=== PATIENT | female | born 1930 | race Caucasian/White ===

== ENCOUNTER 2016-05-12 07:42 | Observation (INO) | payer MEDICARE, OTHER ==
--- NOTE | 2016-05-12 08:42 | RAD ---
HISTORY: Chest pain, pneumonia COMPARISONS: None VIEWS: 2: Frontal dual-energy and lateral views of the chest. FINDINGS: CARDIOMEDIASTINAL SILHOUETTE: The aorta is tortuous. The cardiomediastinal silhouette is otherwise unremarkable. KANDACE: The kandace are normal. PLEURA: The costophrenic angles are sharp. No pleural abnormalities are noted. LUNG PARENCHYMA: The lungs are clear. ABDOMEN: The upper abdomen is clear. There is no subphrenic gas. BONES AND SOFT TISSUES: Degenerative changes are noted along the spine. OTHER: None. IMPRESSION: HYPERINFLATION, CONSISTENT WITH COPD. NO ACTIVE CARDIOPULMONARY DISEASE.
[2016-05-12 09:07] LABS: Hematocrit 35 % (35-47); Hemoglobin 11.7 g/dl (12.0-16.0); Mean Corpuscular HGB Conc 34 g/dl (31-36); Mean Corpuscular Hemoglobin 32 pg (27-31); Mean Corpuscular Volume 95 fL (80-97); Mean Platelet Volume 8 um3 (7.4-10.4); Red Blood Count 3.69 10^6/ul (4.0-5.4); Red Cell Distribution Width 13 % (10.5-15); White Blood Count 10.3 10^3/ul (3.5-10.8)
[2016-05-12 09:23] LABS: Albumin 3.1 g/dL (3.2-5.2); BUN/Creatinine Ratio 29.7 (8-20); Calcium 8.7 mg/dL (8.6-10.3); EGFR African American 95.3 (>60); EGFR Non-African American 74.1 (>60); Potassium 3.9 mmol/L (3.5-5.0); Total Bilirubin 0.4 mg/dL (0.2-1.0); Total Protein 6.1 g/dL (6.4-8.9)
[2016-05-12 09:24] LABS: Troponin I 0.01 ng/mL (<0.04)
[2016-05-12] MEDS ORDERED: Ondansetron INJ* 2 MG/ML VIAL IV PRN (09:43)
[2016-05-12] MEDS ORDERED: Morphine INJ* 2 MG/ML 1 ML CARPUJECT IV PRN (09:43)
[2016-05-12] MEDS ORDERED: Acetaminophen TAB* 325 MG PO PRN (09:43)
--- NOTE | 2016-05-12 10:31 | ED ---
Howie Carter Adam, scribed for Christian Jauregui MD on 05/12/16 at 0824 . HPI Chest Pain - HPI Summary HPI Summary: Patient is a 86 y/o female who presents to [facility] with chest pain since 0700 this morning (possibly yesterday). She describes the pain as pressure or congestion in her epigastric. She reports mild dyspnea and mild SOB. Pain does not radiate and she denies diaphoresis, rhinorrhea, chills, fever, diarrhea, or cough. She also denies any pain or edema in her lower extremities or any pain in her abd. She confirms chest pain while ambulating. Pt did receive her flu shot this year. 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 SHx: She is a former smoker (stopped smoking approximately 8 years ago) and lives in an assisted living center ([facility]). PMHx: She denies HTN, HLD, DM, COPD, Asthma, or CAD. FHx: Father had CAD at an unspecified age. - History of Current Complaint Chief Complaint: EDChestWallPain Time Seen by Provider: 05/12/16 07:56 Hx Obtained From: Patient Onset/Duration: Started Minutes Ago - Approximately 1 hour., Still Present Timing: Constant, Lasting Minutes Initial Severity: Moderate Current Severity: Moderate Chest Pain Radiates: No Character: Pressure/Squeezing Aggravating Factor(s): Movement - Ambulating Alleviating Factor(s): Nothing Associated Signs and Symptoms: Negative: Fever, Chills, Diaphoresis, Cough, Abdominal Pain - Allergy/Home Medications Allergies/Adverse Reactions: Allergies Allergy/AdvReac Type Severity Reaction Status Date / Time No Known Allergies Allergy Verified 03/04/16 15:58 PMH/Surg Hx/FS Hx/Imm Hx Endocrine/Hematology History: Denies: Hx Diabetes, Hx Thyroid Disease Cardiovascular History: Denies: Hx Congestive Heart Failure, Hx Hypertension Respiratory History: Denies: Hx Asthma, Hx Chronic Obstructive Pulmonary Disease (COPD) GI History: Denies: Hx Ulcer History: Denies: Hx Dialysis, Hx Renal Disease Sensory History: Reports: Hx Contacts or Glasses - GLASSES, Hx Glaucoma - BILATERAL Denies: Hx Hearing Aid Opthamlomology History: Reports: Hx Contacts or Glasses - GLASSES, Hx Glaucoma - BILATERAL Neurological History: Reports: Hx Dementia, Other Neuro Impairments/Disorders - VERTIGO BEING TREATED BY DR. 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 BILATERAL CATERACT EXTRACTION WITH IOL IMPLANT, [facility]. APPENDECTOMY A CHILD Hx Anesthesia Reactions: No Infectious Disease History: Reports: History Other Infectious Disease - MEASLES Denies: Hx Clostridium Difficile, Hx Hepatitis, Hx Human Immunodeficiency Virus (HIV), Hx of Known/Suspected MRSA, Hx Shingles, Hx Tuberculosis, Hx Known/ Suspected VRE, Hx Known/Suspected VRSA - Family History Known Family History: Positive: Cardiac Disease - Father at an unspecified age. 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 Length of Time of Smoking/Using Tobacco: 50 YEARS Have You Smoked in the Last Year: No Review of Systems Negative: Fever, Chills, Skin Diaphoresis Negative: Nasal Discharge Positive: Chest Pain Positive: Shortness Of Breath. Negative: Cough Negative: Abdominal Pain, Diarrhea Positive: Other - Intermittent but constant pain in right hip. . Negative: Edema All Other Systems Reviewed And Are Negative: Yes Physical Exam - Summary Physical Exam Summary: The patient is well-nourished in some discomfort. The skin is warm and dry and skin color reflects adequate perfusion. HEENT: The head is normocephalic and atraumatic. The pupils are equal and reactive. The conjunctivae are clear and without drainage. Mouth reveals moist mucous membranes and the throat is without erythema and exudate. The external ears are intact. The ear canals are patent and without drainage. The tympanic membranes are intact. Neck is supple with full range of motion and non-tender. There are no carotid bruits. There is no neck vein distension. Respiratory: Some reproducible chest tenderness. Lungs are clear to auscultation and breath sounds are symmetrical and equal. Cardiovascular: Heart is regular rate and rhythm. There is no murmur or rub auscultated. There is no peripheral edema and pulses are symmetrical and equal. Abdomen: The abdomen is soft and non-tender. There are normal bowel sounds heard in all four quadrants and there is no organomegaly palpated. Musculoskeletal: Extremities are non-tender with full range of motion. Capillary refill less than 2 seconds. There is no peripheral edema or calf tenderness elicited. Neurological: Patient is alert and oriented to person, place and time. The patient has symmetrical motor strength in all four extremities. Cranial nerves are grossly intact. Psychiatric: The patient has an appropriate affect and does not exhibit any anxiety or depression. Triage Information Reviewed: Yes Vital Signs On Initial Exam: Initial Vitals BP 118/66 05/12/16 07:54 Vital Signs Reviewed: Yes Diagnostics - Vital Signs Vital Signs Temp Pulse Resp BP Pulse Ox 05/12/16 09:00 70 19 95 05/12/16 08:02 98.5 F 74 16 113/58 96 05/12/16 08:00 72 20 113/58 96 05/12/16 07:55 74 95 05/12/16 07:54 118/66 - Laboratory Lab Results: Lab Results 05/12/16 05/12/16 05/12/16 Range/Units 08:55 08:55 08:55 WBC 10.3 (3.5-10.8) 10^3/ul RBC 3.69 L (4.0-5.4) 10^6/ul Hgb 11.7 L (12.0-16.0) g/dl Hct 35 (35-47) % MCV 95 (80-97) fL MCH 32 H (27-31) pg MCHC 34 (31-36) g/dl RDW 13 (10.5-15) % Plt Count 254 (150-450) 10^3/ul MPV 8 (7.4-10.4) um3 Neut % (Auto) 73.9 (38-83) % Lymph % (Auto) 16.3 L (25-47) % [place] % (Auto) 6.5 (1-9) % Eos % (Auto) 2.3 (0-6) % Baso % (Auto) 1.0 (0-2) % Absolute Neuts (auto) 7.6 (1.5-7.7) 10^3/ul Absolute Lymphs (auto) 1.7 (1.0-4.8) 10^3/ul Absolute Monos (auto) 0.7 (0-0.8) 10^3/ul Absolute Eos (auto) 0.2 (0-0.6) 10^3/ul Absolute Basos (auto) 0.1 (0-0.2) 10^3/ul Absolute Nucleated RBC 0 10^3/ul Nucleated RBC % 0 Sodium 136 (133-145) mmol/L Potassium 3.9 (3.5-5.0) mmol/L Chloride 106 (101-111) mmol/L Carbon Dioxide 24 (22-32) mmol/L Anion Gap 6 (2-11) mmol/L BUN 22 (6-24) mg/dL Creatinine 0.74 (0.51-0.95) mg/dL Est GFR ( Amer) 95.3 (>60) Est GFR (Non-Af Amer) 74.1 (>60) BUN/Creatinine Ratio 29.7 H (8-20) Glucose 104 H (70-100) mg/dL Lactic Acid 1.3 (0.5-2.0) mmol/L Calcium 8.7 (8.6-10.3) mg/dL Total Bilirubin 0.40 (0.2-1.0) mg/dL AST 13 (13-39) U/L ALT 9 (7-52) U/L Alkaline Phosphatase 58 (34-104) U/L Troponin I 0.01 (<0.04) ng/mL B-Natriuretic Peptide ( - 100) pg/mL Total Protein 6.1 L (6.4-8.9) g/dL Albumin 3.1 L (3.2-5.2) g/dL Globulin 3.0 (2-4) g/dL Albumin/Globulin Ratio 1.0 (1-3) 05/12/16 Range/Units 08:55 WBC (3.5-10.8) 10^3/ul RBC (4.0-5.4) 10^6/ul Hgb (12.0-16.0) g/dl Hct (35-47) % MCV (80-97) fL MCH (27-31) pg MCHC (31-36) g/dl RDW (10.5-15) % Plt Count (150-450) 10^3/ul MPV (7.4-10.4) um3 Neut % (Auto) (38-83) % Lymph % (Auto) (25-47) % [place] % (Auto) (1-9) % Eos % (Auto) (0-6) % Baso % (Auto) (0-2) % Absolute Neuts (auto) (1.5-7.7) 10^3/ul Absolute Lymphs (auto) (1.0-4.8) 10^3/ul Absolute Monos (auto) (0-0.8) 10^3/ul Absolute Eos (auto) (0-0.6) 10^3/ul Absolute Basos (auto) (0-0.2) 10^3/ul Absolute Nucleated RBC 10^3/ul Nucleated RBC % Sodium (133-145) mmol/L Potassium (3.5-5.0) mmol/L Chloride (101-111) mmol/L Carbon Dioxide (22-32) mmol/L Anion Gap (2-11) mmol/L BUN (6-24) mg/dL Creatinine (0.51-0.95) mg/dL Est GFR ( Amer) (>60) Est GFR (Non-Af Amer) (>60) BUN/Creatinine Ratio (8-20) Glucose (70-100) mg/dL Lactic Acid (0.5-2.0) mmol/L Calcium (8.6-10.3) mg/dL Total Bilirubin (0.2-1.0) mg/dL AST (13-39) U/L ALT (7-52) U/L Alkaline Phosphatase (34-104) U/L Troponin I (<0.04) ng/mL B-Natriuretic Peptide 18 ( - 100) pg/mL Total Protein (6.4-8.9) g/dL Albumin (3.2-5.2) g/dL Globulin (2-4) g/dL Albumin/Globulin Ratio (1-3) Result Diagrams: 05/12/16 08:55 05/12/16 08:55 Lab Statement: Any lab studies that have been ordered have been reviewed, and results considered in the medical decision making process. - Radiology CHEST Radiology Interpretation Completed By: Radiologist - IMPRESSION: HYPERINFLATION , CONSISTENT WITH COPD. NO ACTIVE CARDIOPULMONARY DISEASE. - EKG 0800 Cardiac Rate: NL - 67 BPM EKG Rhythm: Sinus Rhythm ST Segment: Normal EKG Interpretation: No STEMI, Poor R Wave Progression EKG Comparison: No Significant Change - From prior - Additional Comments Diagnostic Additional Comments: Troponin = 0.01 Chest Pain Course/Dx - Chest Pain Differential Diagnosis/HQI/PQRI: Acute NE, ACS, Angina, CHF, Chest Wall, GI Disease, Lower Respiratory Infection - Diagnoses Provider Diagnoses: Chest pain - Provider Notifications Discussed Care Of Patient With: Dr. Thompson (Hospitalist). Pt will be admitted and serial troponin(s) willl be obtained. Discharge - Discharge Plan Condition: Stable Disposition: ADMITTED TO [facility] The documentation as recorded by the Howie ramos Adam accurately reflects the service I personally performed and the decisions made by , Christian Jauregui MD.
[2016-05-12 16:11] VITALS: BP 122/64
[2016-05-12] MEDS ORDERED: Meclizine TAB* 12.5 MG PO PRN (17:19)
[2016-05-12] MEDS ORDERED: Polyethylene Glycol 3350* 17 GM PACKET PO PRN ×2 (17:19)
[2016-05-12] MEDS ORDERED: Fluticasone NASAL SPRAY 50MCG* 16 gm SPRAY BTL BOTH NARES PRN (17:19)
--- NOTE | 2016-05-12 20:12 | PN ---
Hospitalist Progress Note . HOSPITALIST DISCHARGE NOTE: See dc instructions and summary by me. Patient stable for dc dc instructions reviewed with the patient at the bedside. DC patient home today.
[2016-05-12] MEDS ORDERED: Sertraline* 100 MG TAB PO SCH (21:00)
[2016-05-12] MEDS ORDERED: Latanoprost 0.005%* 2.5 ml BTL BOTH EYES SCH (21:00)
[2016-05-12] MEDS ORDERED: Psyllium PAK PO SCH (21:00)
[2016-05-12] MEDS ORDERED: QUEtiapine TAB* 25 MG PO SCH (21:00)
--- NOTE | 2016-05-12 21:24 | HP ---
OBSERVATION HISTORY AND PHYSICAL AND DISCHARGE SUMMARY: DATE OF ADMISSION: 05/12/16 DATE OF DISCHARGE: 05/12/16 CHIEF COMPLAINT: Chest pain. HISTORY OF PRESENT ILLNESS: Ms. Tinajero is a pleasant, but [id number] demented 86-year-old female who came to the emergency room with chest pain since early in the morning. She was very vague about the symptomatology and stated that the pressure might have been present since the day before admission. The patient described the discomfort as a "congestion" in her epigastrium. There was mild shortness of breath and mild dyspnea. The patient did not radiate and there was no accompanying symptoms such as fever, cough, diaphoresis and so on. There was no pain or edema in her lower extremities. There was mild chest discomfort while ambulating. The patient did receive a flu shot. Her flu test in the emergency room was negative. She is a former smoker, but has not smoked in decades. She received aspirin prior to arrival from EMS. The patient was evaluated in the emergency room because of the nature of her chest pain and the inability to ensure this was not secondary to angina, she was referred for observation services with the Hospitalists. The patient was placed under telemetry monitoring and serial troponins were ordered. PAST MEDICAL HISTORY: 1. Multiple skin cancers. 2. Dementia. 3. Vertigo. 4. Glaucoma. 5. Depression. OUTPATIENT MEDICATIONS: 1. Donepezil 10 mg by mouth daily. 2. Travoprost 0.004% drops one drop both eyes at bedtime. 3. Sertraline 100 mg by mouth twice daily. 4. Meclizine/Antivert 12.5 mg orally 3 times daily as needed. 5. Dorzolamide/timolol eye drops one drop both eyes daily. 6. Vitamin E 400 units by mouth daily. 7. Seroquel 25 mg by mouth twice daily. 8. Mometasone 1 spray both nares every day as needed. 9. Cholecalciferol 50,000 units by mouth monthly. 10. Loratadine 1 tab by mouth daily. 11. Polyethylene glycol 17 g orally daily as needed. 12. Metamucil 3.4 g orally twice daily. ALLERGIES: No known drug allergies. FAMILY HISTORY: Reviewed, but noncontributory based on the current situation. SOCIAL HISTORY: The patient is a resident at [facility]. Nonsmoker, nondrinker. She is accompanied by her niece, who is her surrogate decision maker, Otilia Garrett. Her power of corporate attorney is Tobi Jarvis and she has a signed DNR by Dr. Holt ([facility]). REVIEW OF SYSTEMS: Negative except for the pertinent positives mentioned above in the HPI. This was done for 14 systems. PHYSICAL EXAMINATION GENERAL APPEARANCE: The patient is a well-nourished, well-presented woman, in no distress. VITAL SIGNS: On admission, temperature 98 degrees Fahrenheit, blood pressure 130/84, respirations 20, oxygen saturation 98% room air. HEENT: Oropharynx is clear. Mucous membranes are moist. No posterior pharyngeal erythema or exudate. NECK: Supple. No elevated JVD. No carotid bruits. LUNGS: Clear to auscultation anteriorly and posteriorly distant sounds, but clear. HEART: Regular rate and rhythm. No murmurs appreciated. ABDOMEN: Soft and nontender. EXTREMITIES: Without clubbing, cyanosis, or edema. SKIN: Warm and dry. NEUROLOGIC: She is A and O x3. ADMISSION DATA: White blood cell count 10.3, hemoglobin 11.7, platelets 254. Blood chemistries are generally normal and slightly elevated BUN to creatinine ratio at 29.7 with a BUN to creatinine of 22 and 0.74 respectively. Her LFTs are within normal limits. Her troponin is 0.01. BNP 18. Total protein was 6.1 and albumin 3.1 - both slightly decreased. The patient's EKG does not show acute ischemia and her chest x-ray did not show any focal infiltrate. The patient is on telemetry with no evidence of arrhythmia. IMPRESSION: Ms. Tinajero is an 86-year-old female who presents with chest pain that is unclear in its nature as recently as 7 o'clock this morning. She was referred for observation services and cycled cardiac enzymes. The patient is a poor historian and so her risk cannot be fully assessed by history. PLAN BY MEDICAL PROBLEM: 1. Cycle cardiac enzymes over the next 6 to 8 hours. Continue telemetry during this time and re-evaluate symptoms while on our observation unit. 2. Continue all outpatient medications and therapies. 3. Re-evaluate this afternoon. HOSPITAL COURSE AND DISCHARGE SUMMARY: Ms. Tinajero was placed on observation as above. She experienced no further chest pain or discomfort. She was given a cardiac diet and she tolerated this well. The patient had 3 separate troponin levels, which were negative. Her telemetry was analyzed by me and showed no evidence of arrhythmia. Her vital signs were within the normal limits. The patient's daughter did come to the hospital and they were satisfied for discharge back to [facility] at this time. The discharge medication regimen is unchanged from the admission regimen above. PRINCIPAL DISCHARGE DIAGNOSIS: Chest pain of unclear etiology, shw was ruled out for myocardial infarction. Followup instructions are to see Dr. Blair next week and this discharge summary will be copied to her as an alert that she was in the hospital. TIME SPENT: Total time taken to admit, monitor and then discharge Ms. Tinajero in total was 75 minutes with greater than half that time spent at the bedside and explaining the hospital data and hospital course to the patient and her daughter at discharge. [id number]/[id number] #: [id number] MTDD
[2016-05-13] MEDS ORDERED: Vitamin E CAP* 400 UNIT PO SCH (09:00)
== END 2016-05-12 18:05 | disposition home or self-care (01) ==
LOC: ED 07:42 → MEDTELE 09:43
PROVIDERS: ADMIT Internal Medicine; ATTEND Internal Medicine
DX: R07.9 Chest pain, unspecified (principal); F03.90 Unspecified dementia, unspecified severity, without behavioral disturbance, psychotic disturbance, mood disturbance, and anxiety; R42 Dizziness and giddiness; F32.9 Major depressive disorder, single episode, unspecified; Z87.891 Personal history of nicotine dependence
CPT/HCPCS: 36415; 71020; 80053; 83605; 83880; 84484; 85025; 87641; 93005; 96374; 99284; A9270-GY; G0378

== ENCOUNTER 2016-07-20 13:21 | Emergency (ER) | payer MEDICARE, OTHER ==
[2016-07-20 13:33] VITALS: BP 138/66
[2016-07-20] MEDS ORDERED: Acetaminophen TAB* 325 MG PO ONE (14:15)
--- NOTE | 2016-07-20 14:15 | ED ---
Head Injury - HPI Summary HPI Summary: 86 y/o female while walking the grounds at [employer] fell on ? stick, denies lightheadedness, syncope, states was mechanical fall. Patient denies LOC, however unwitnessed. Walked by herself back to home, was taken to ED. Currently states minimal pain over areas of cuts, denies LARA, no other body complaints. NO h/O falling per patient. integrated pest management technician not with patient, report from [facility] states fell on carpet, hit head on coffee table, witnessed. - History Of Current Complaint Chief Complaint: EDFacialInjury Stated Complaint: FALL / FACIAL LAC Time Seen by Provider: 07/20/16 13:53 Hx Obtained From: Patient Pain Intensity: 4 - Allergies/Home Medications Allergies/Adverse Reactions: Allergies Allergy/AdvReac Type Severity Reaction Status Date / Time No Known Allergies Allergy Verified 07/20/16 13:34 PMH/Surg Hx/FS Hx/Imm Hx Previously Healthy: No - dementia Endocrine/Hematology History: Denies: Hx Diabetes, Hx Thyroid Disease Cardiovascular History: Denies: Hx Congestive Heart Failure, Hx Hypertension Respiratory History: Denies: Hx Asthma, Hx Chronic Obstructive Pulmonary Disease (COPD) GI History: Denies: Hx Ulcer History: Denies: Hx Dialysis, Hx Renal Disease Sensory History: Reports: Hx Contacts or Glasses - GLASSES, Hx Glaucoma - BILATERAL Denies: Hx Hearing Aid Opthamlomology History: Reports: Hx Contacts or Glasses - GLASSES, Hx Glaucoma - BILATERAL Neurological History: Reports: Hx Dementia, Other Neuro Impairments/Disorders - VERTIGO BEING TREATED BY DR. 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 BILATERAL CATERACT EXTRACTION WITH IOL IMPLANT, [facility]. APPENDECTOMY A CHILD Hx Anesthesia Reactions: No Infectious Disease History: No Infectious Disease History: Reports: History Other Infectious Disease - MEASLES Denies: Hx Clostridium Difficile, Hx Hepatitis, Hx Human Immunodeficiency Virus (HIV), Hx of Known/Suspected MRSA, Hx Shingles, Hx Tuberculosis, Hx Known/ Suspected VRE, Hx Known/Suspected VRSA, Traveled Outside the [place] in Last 30 Days - Family History Known Family History: Positive: Cardiac Disease - Father at an unspecified age. 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 Hx Substance Use: No Substance Use Type: Reports: None Hx Tobacco Use: Yes Smoking Status (MU): Former Smoker Length of Time of Smoking/Using Tobacco: 50 YEARS Have You Smoked in the Last Year: No Review of Systems Constitutional: Negative Eyes: Negative ENT: Negative Respiratory: Negative Gastrointestinal: Negative Genitourinary: Negative Musculoskeletal: Negative Positive: Bruising Positive: Headache Psychological: Normal All Other Systems Reviewed And Are Negative: Yes - Comments Additional Review of Systems Comments: Difficult to assess due to patients history of dementia Physical Exam Triage Information Reviewed: Yes Vital Signs On Initial Exam: Initial Vitals Temp Pulse Resp BP Pulse Ox 98.3 F 62 16 138/66 97 07/20/16 13:26 07/20/16 13:26 07/20/16 13:26 07/20/16 13:26 07/20/16 13:26 Vital Signs Reviewed: Yes Completion Of Physical Exam Limited Due To: Dementia Appearance: Positive: Well-Appearing, No Pain Distress, Well-Nourished Skin: Positive: Warm, Skin Color Reflects Adequate Perfusion, Other - two superficial lacerations on right side of face, one near lateral eye, second above lateral eybrow, both superficial, minimal oozing of blood. irrigated and washed well. Head/Face: Positive: Other - other than lacerations normal head inspection, no TA tenderness, no TMJ tenderness Eyes: Positive: Normal, EOMI, TANESHA, Conjunctiva Clear ENT: Positive: Normal ENT inspection, Pharynx normal Neck: Positive: Supple, Nontender, No Lymphadenopathy Respiratory/Lung Sounds: Positive: Clear to Auscultation, Breath Sounds Present Cardiovascular: Positive: Normal, RRR, Pulses are Symmetrical in both Upper and Lower Extremities Abdomen Description: Positive: Nontender, No Organomegaly, Soft Musculoskeletal: Positive: Normal, Strength/ROM Intact Neurological: Positive: Normal, Sensory/Motor Intact, Alert, Oriented to Person Place, Time, CN Intact II-III, Finger to Nose - normal, Facial Symmetry, Speech Normal Psychiatric: Positive: Normal, Affect/Mood Appropriate AVPU Assessment: Alert - Joce Coma Scale Best Eye Response: 4 - Spontaneous Best Motor Response: 6 - Obeys Commands Diagnostics - Vital Signs Vital Signs Temp Pulse Resp BP Pulse Ox 07/20/16 13:26 98.3 F 62 16 138/66 97 - Laboratory Lab Statement: Any lab studies that have been ordered have been reviewed, and results considered in the medical decision making process. Head Injury Course/Dx Course Of Treatment: due to ho dementia and age, CT head taken, no acute abnormalities. Neuro exam grossly negative, unable to suture lacerations due to depth, steri-stip and glue to laceration near eye, bandage for forehead laceration. Follow up with PCP within 2-3 days for re-evaluation - Diagnoses Provider Diagnoses: Laceration of face Discharge - Discharge Plan Condition: Guarded Disposition: HOME Patient Education Materials: Laceration (ED), Concussion (ED) Referrals: Carol Blair MD [Primary Care Provider] - 1 Day (2-3 days ) Additional Instructions: - Monitor for signs of worsening concussion- decreased memory, mood changes, increased fatigue, slurred speech, increasing pain. Return to ER if occurs - Laceration to face, forehead- Seri-strips to face, bandaid to forehead. Keep clean, ok to shower with mild soap. - FOllow up with primary physician within 2-3 days for re-evaluation
--- NOTE | 2016-07-20 15:15 | RAD ---
INDICATION: Intracranial injury. Unwitnessed fall. COMPARISON: CT brain October 29, 2014 TECHNIQUE: Noncontrast axial source images were acquired from the skull base to the vertex. FINDINGS: Ventricles/sulci: There is age-related cortical atrophy with compensatory dilatation of the CSF spaces. Brain parenchyma: There is no acute focal parenchymal finding, evidence of intracranial mass, or intracranial mass effect. There is mild chronic microvascular ischemic change in the periventricular regions. Intracranial hemorrhage:None. Extra-axial spaces: There are no abnormal extra axial fluid collections or evidence of extra-axial mass. Calvarium: There is no calvarial fracture or other calvarial abnormality. Scalp: There is no evidence of scalp or extracalvarial soft tissue abnormality. Paranasal sinuses/mastoid: The paranasal sinuses and mastoid air cells are clear. Other: None. IMPRESSION: Mild age-related atrophy. No acute findings
== END 2016-07-20 16:30 | disposition home or self-care (01) ==
LOC: ED 13:21
DX: S01.81XA Laceration without foreign body of other part of head, initial encounter (principal); W19.XXXA Unspecified fall, initial encounter; Y93.9 Activity, unspecified; Y92.9 Unspecified place or not applicable; Z87.891 Personal history of nicotine dependence
CPT/HCPCS: 70450; 99283; A9270-GY

== ENCOUNTER 2016-09-10 08:34 | Emergency (ER) | payer MEDICARE, OTHER ==
[2016-09-10 08:43] VITALS: BP 130/76
[2016-09-10] MEDS: NS 0.9% 1000 ML* 2,000 ML IV ONE ×2 (09:52→11:41)
[2016-09-10 10:16] LABS: Hematocrit 34 % (35-47); Hemoglobin 11.3 g/dl (12.0-16.0); Mean Corpuscular HGB Conc 33 g/dl (31-36); Mean Corpuscular Hemoglobin 30 pg (27-31); Mean Corpuscular Volume 90 fL (80-97); Mean Platelet Volume 8 um3 (7.4-10.4); Red Blood Count 3.79 10^6/ul (4.0-5.4); Red Cell Distribution Width 15 % (10.5-15); White Blood Count 9.4 10^3/ul (3.5-10.8)
[2016-09-10 10:17] LABS: Add Diff/Slide Review? Slide Review Added; Comments Flag Yes
[2016-09-10 10:27] LABS: Albumin 3.3 g/dL (3.2-5.2); C Reactive Protein 4.68 mg/L (< 5.00); Calcium 8.9 mg/dL (8.6-10.3); EGFR African American 84.6 (>60); EGFR Non-African American 65.8 (>60); Globulin 3.1 g/dL (2-4); Total Bilirubin 0.4 mg/dL (0.2-1.0); Total Protein 6.4 g/dL (6.4-8.9)
[2016-09-10] MEDS ORDERED: Iohexol 300* (CONTRAST) 10 ML SDV IV ONE (10:42)
[2016-09-10 11:51] LABS: Urine Bilirubin Negative (Negative); Urine Glucose Negative (Negative); Urine Nitrite Negative (Negative)
--- NOTE | 2016-09-10 13:31 | RAD ---
Indication: Right lower quadrant pain. Contrast: Administered 95.0 ml of OMNIPAQUE 300 mgi/ml CT of the abdomen and pelvis was performed after oral and IV contrast administration. Coronal and sagittal reconstructed images were obtained. The lung bases demonstrate no nodules. There may be a small right pleural effusion. A small Bochdalek hernia may be present.. There is a hiatal hernia noted. There may be thickening of the gastroesophageal junction distally. This may be sequela from esophagitis although other etiologies are not excluded. The liver is normal in size. No focal lesions or intrahepatic duct dilatation is noted. The gallbladder demonstrates no calcified gallstones. No pericholecystic fluid or wall thickening is identified. The common duct is not dilated. The pancreas demonstrates pancreatic duct dilatation. There is a lobulated cystic lesion in the neck of the pancreas measuring up to 2.9 cm. 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 This has been present since August 27, 2014. The spleen is normal in size. No adrenal masses are noted. The kidneys demonstrate symmetric nephrograms without evidence of hydronephrosis. Aorta and inferior vena cava are unremarkable. No dilated loops of bowel are noted. Extensive diverticulosis is noted without definite evidence of diverticulitis. There is right-sided diverticulosis noted ascending colon. The appendix is not definitively identified. No free fluid or tubular fluid-filled structure to suggest appendicitis is noted. The bowel demonstrates no abnormal dilatation. The uterus is unremarkable. Old healed fracture left inferior pubic ramus is noted. IMPRESSION: Extensive diverticulosis without definite evidence of diverticulitis. There is a cystic lesion in the neck of the pancreas measuring 2.9 cm. This has been present as far back as 2014. Hiatal hernia with diffuse wall thickening of the distal esophagus. This may represent esophagitis. Clinical correlation is suggested.
--- NOTE | 2016-09-10 18:00 | ED ---
Kyra Carter Alfonso, scribed for Christian Jauregui MD on 09/10/16 at 0916 . Abdominal Pain/Female - HPI Summary HPI Summary: This pt is an 86 y.o. F presenting to [facility] for chronic abdominal pain for two years that has been severe since last night. She has experiences this pain once before with a history of diverticulitis. Sx aggravated and alleviated by nothing. She reports trouble sleeping. Pt denies N/V, melena, difficulty urination, diarrhea, fever, chills, and diaphoresis. Denies back pain, and recent falls. History of dementia and is in an assisted living home. Primary care involves Dr. Blair. Pt is DNR. - History of Current Complaint Chief Complaint: EDAbdPain Stated Complaint: ABD PAIN Hx Obtained From: Patient Onset/Duration: Gradual Onset, Lasting Hours, Still Present Timing: Constant Severity Initially: Mild Severity Currently: Moderate Location: Diffuse Aggravating Factor(s): Nothing Alleviating Factor(s): Nothing Associated Signs and Symptoms: Positive: Other: - negative chills. Negative: Diaphoresis, Fever, Blood in Stool, Urinary Symptoms, Nausea, Vomiting, Diarrhea Allergies/Adverse Reactions: Allergies Allergy/AdvReac Type Severity Reaction Status Date / Time No Known Allergies Allergy Verified 07/20/16 13:34 PMH/Surg Hx/FS Hx/Imm Hx Endocrine/Hematology History: Denies: Hx Diabetes, Hx Thyroid Disease Cardiovascular History: Denies: Hx Congestive Heart Failure, Hx Hypertension Respiratory History: Denies: Hx Asthma, Hx Chronic Obstructive Pulmonary Disease (COPD) GI History: Denies: Hx Ulcer History: Denies: Hx Dialysis, Hx Renal Disease Sensory History: Reports: Hx Contacts or Glasses - GLASSES, Hx Glaucoma - BILATERAL Denies: Hx Hearing Aid Opthamlomology History: Reports: Hx Contacts or Glasses - GLASSES, Hx Glaucoma - BILATERAL Neurological History: Reports: Hx Dementia, Other Neuro Impairments/Disorders - VERTIGO BEING TREATED BY DR. 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 BILATERAL CATERACT EXTRACTION WITH IOL IMPLANT, [facility]. APPENDECTOMY A CHILD Hx Anesthesia Reactions: No Infectious Disease History: No Infectious Disease History: Reports: History Other Infectious Disease - MEASLES Denies: Hx Clostridium Difficile, Hx Hepatitis, Hx Human Immunodeficiency Virus (HIV), Hx of Known/Suspected MRSA, Hx Shingles, Hx Tuberculosis, Hx Known/ Suspected VRE, Hx Known/Suspected VRSA, Traveled Outside the [place] in Last 30 Days - Family History Known Family History: Positive: Cardiac Disease - Father at an unspecified age. 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 Negative: Vomiting, Diarrhea, Nausea Negative: no symptoms reported All Other Systems Reviewed And Are Negative: Yes Physical Exam - Summary Physical Exam Summary: The patient is well-nourished in no acute distress and in no acute pain. The skin is warm and dry and skin color reflects adequate perfusion. HEENT: The head is normocephalic and atraumatic. The pupils are equal and reactive. The conjunctivae are clear and without drainage. Nares are patent and without drainage. Mouth reveals dry oral mucous membranes and the throat is without erythema and exudate. The external ears are intact. The ear canals are patent and without drainage. The tympanic membranes are intact. Neck is supple with full range of motion and non-tender. There are no carotid bruits. There is no neck vein distension. Respiratory: Chest is non-tender. Lungs are clear to auscultation and breath sounds are symmetrical and equal. Cardiovascular: Heart is regular rate and rhythm. There is no murmur or rub auscultated. There is no peripheral edema and pulses are symmetrical and equal. Abdomen: The abdomen is soft and non-tender. No RLQ pain. There are normal bowel sounds heard in all four quadrants and there is no organomegaly palpated. Musculoskeletal: There is no back pain noted. Extremities are non-tender with full range of motion. There is good capillary refill. There is no peripheral edema or calf tenderness elicited. Hips are non tender. Neurological: Patient is alert and oriented to person, place and time. The patient has symmetrical motor strength in all four extremities. Cranial nerves are grossly intact. Deep tendon reflexes are symmetrical and equal in all four extremities. Psychiatric: The patient has an appropriate affect and does not exhibit any anxiety or depression. Triage Information Reviewed: Yes Vital Signs On Initial Exam: Initial Vitals Temp Pulse Resp BP Pulse Ox 98.6 F 64 18 130/76 96 09/10/16 08:39 09/10/16 08:39 09/10/16 08:39 09/10/16 08:39 09/10/16 08:39 Vital Signs Reviewed: Yes Diagnostics - Vital Signs Vital Signs Temp Pulse Resp BP Pulse Ox 09/10/16 08:39 98.6 F 64 18 130/76 96 - Laboratory Lab Results: Lab Results 09/10/16 09/10/16 09/10/16 Range/Units 10:01 10:01 10:01 WBC 9.4 (3.5-10.8) 10^3/ul RBC 3.79 L (4.0-5.4) 10^6/ul Hgb 11.3 L (12.0-16.0) g/dl Hct 34 L (35-47) % MCV 90 (80-97) fL MCH 30 (27-31) pg MCHC 33 (31-36) g/dl RDW 15 (10.5-15) % Plt Count 294 (150-450) 10^3/ul MPV 8 (7.4-10.4) um3 Neut % (Auto) 81.0 (38-83) % Lymph % (Auto) 9.3 L (25-47) % [place] % (Auto) 5.2 (1-9) % Eos % (Auto) 2.3 (0-6) % Baso % (Auto) 2.2 H (0-2) % Absolute Neuts (auto) 7.6 (1.5-7.7) 10^3/ul Absolute Lymphs (auto) 0.9 L (1.0-4.8) 10^3/ul Absolute Monos (auto) 0.5 (0-0.8) 10^3/ul Absolute Eos (auto) 0.2 (0-0.6) 10^3/ul Absolute Basos (auto) 0.2 (0-0.2) 10^3/ul Absolute Nucleated RBC 0 10^3/ul Nucleated RBC % 0 INR (Anticoag Therapy) 1.14 H (0.89-1.11) Sodium 136 (133-145) mmol/L Potassium 4.0 (3.5-5.0) mmol/L Chloride 106 (101-111) mmol/L Carbon Dioxide 25 (22-32) mmol/L Anion Gap 5 (2-11) mmol/L BUN 18 (6-24) mg/dL Creatinine 0.82 (0.51-0.95) mg/dL Est GFR ( Amer) 84.6 (>60) Est GFR (Non-Af Amer) 65.8 (>60) BUN/Creatinine Ratio 22.0 H (8-20) Glucose 108 H (70-100) mg/dL Lactic Acid (0.5-2.0) mmol/L Calcium 8.9 (8.6-10.3) mg/dL Total Bilirubin 0.40 (0.2-1.0) mg/dL AST 14 (13-39) U/L ALT 11 (7-52) U/L Alkaline Phosphatase 66 (34-104) U/L Troponin I 0.00 (<0.04) ng/mL C-Reactive Protein 4.68 (< 5.00) mg/L Total Protein 6.4 (6.4-8.9) g/dL Albumin 3.3 (3.2-5.2) g/dL Globulin 3.1 (2-4) g/dL Albumin/Globulin Ratio 1.1 (1-3) Lipase 42 (11.0-82.0) U/L Urine Color Urine Appearance Urine pH (5-9) Ur Specific [place] (1.010-1.030) Urine Protein (Negative) Urine Ketones (Negative) Urine Blood (Negative) Urine Nitrate (Negative) Urine Bilirubin (Negative) Urine Urobilinogen (Negative) Ur Leukocyte Esterase (Negative) Urine Glucose (Negative) 09/10/16 09/10/16 Range/Units 10:01 11:40 WBC (3.5-10.8) 10^3/ul RBC (4.0-5.4) 10^6/ul Hgb (12.0-16.0) g/dl Hct (35-47) % MCV (80-97) fL MCH (27-31) pg MCHC (31-36) g/dl RDW (10.5-15) % Plt Count (150-450) 10^3/ul MPV (7.4-10.4) um3 Neut % (Auto) (38-83) % Lymph % (Auto) (25-47) % [place] % (Auto) (1-9) % Eos % (Auto) (0-6) % Baso % (Auto) (0-2) % Absolute Neuts (auto) (1.5-7.7) 10^3/ul Absolute Lymphs (auto) (1.0-4.8) 10^3/ul Absolute Monos (auto) (0-0.8) 10^3/ul Absolute Eos (auto) (0-0.6) 10^3/ul Absolute Basos (auto) (0-0.2) 10^3/ul Absolute Nucleated RBC 10^3/ul Nucleated RBC % INR (Anticoag Therapy) (0.89-1.11) Sodium (133-145) mmol/L Potassium (3.5-5.0) mmol/L Chloride (101-111) mmol/L Carbon Dioxide (22-32) mmol/L Anion Gap (2-11) mmol/L BUN (6-24) mg/dL Creatinine (0.51-0.95) mg/dL Est GFR ( Amer) (>60) Est GFR (Non-Af Amer) (>60) BUN/Creatinine Ratio (8-20) Glucose (70-100) mg/dL Lactic Acid 0.6 (0.5-2.0) mmol/L Calcium (8.6-10.3) mg/dL Total Bilirubin (0.2-1.0) mg/dL AST (13-39) U/L ALT (7-52) U/L Alkaline Phosphatase (34-104) U/L Troponin I (<0.04) ng/mL C-Reactive Protein (< 5.00) mg/L Total Protein (6.4-8.9) g/dL Albumin (3.2-5.2) g/dL Globulin (2-4) g/dL Albumin/Globulin Ratio (1-3) Lipase (11.0-82.0) U/L Urine Color Yellow Urine Appearance Cloudy Urine pH 7.0 (5-9) Ur Specific [place] 1.012 (1.010-1.030) Urine Protein Negative (Negative) Urine Ketones Negative (Negative) Urine Blood Negative (Negative) Urine Nitrate Negative (Negative) Urine Bilirubin Negative (Negative) Urine Urobilinogen Negative (Negative) Ur Leukocyte Esterase Negative (Negative) Urine Glucose Negative (Negative) Result Diagrams: 09/10/16 10:01 09/10/16 10:01 Lab Statement: Any lab studies that have been ordered have been reviewed, and results considered in the medical decision making process. - CT Ab/P CT Interpretation: Positive (See Comments) - Extensive diverticulosis without definite evidence of diverticulitis. There is a cystic lesion in the neck of the pancreas measuring 2.9 cm. This has been present as far back as 2014. Hiatal hernia with diffuse wall thickening of the distal esophagus. This may represent esophagitis. Clinical correlation is suggested. CT Interpretation Completed By: Radiologist - EKG 0913 Cardiac Rate: NL EKG Rhythm: Sinus Rhythm EKG Interpretation: Left axis. Poor R-wave progression Re-Evaluation - Re-Evaluation First Eval Re-Evaluation Time: 13:48 Comment: Dr. Jauregui in room to update pt on blood work and CT imaging results. Hard copies or imaging and labwork are provided to pt. Abdominal Pain Fem Course/Dx - Course Course Of Treatment: THis 86 y/o female presents to ED with chief complaint of acute on chronic abd pain since last night. Negative n/v/d. Positive Hx of diverticulitis. CT Ab/P indicates extensive diverticulosis without definite evidence of diverticulitis. Bloodwork is noted wnl without WBC or CRP. UA is wnl. EKG indicates left axis and poor R-wave progression without acute findings. Pt will be discharged with outpatient f/u with primary care provider. - Diagnoses Differential Diagnosis: Positive: Appendicitis, Bowel Obstruction, Diverticulitis, Urinary Tract Infection Provider Diagnoses: Abdominal pain, Diverticulosis Discharge - Discharge Plan Condition: Stable Disposition: HOME Patient Education Materials: Diverticulosis (ED), Abdominal Pain (ED) Referrals: Carol Blair MD [Primary Care Provider] - 2 Days The documentation as recorded by the Kyra ramos Alfonso accurately reflects the service I personally performed and the decisions made by Juventino coleman Drew, MD.
== END 2016-09-10 14:05 | disposition home or self-care (01) ==
LOC: ED 08:34
DX: R10.9 Unspecified abdominal pain (principal); K57.90 Diverticulosis of intestine, part unspecified, without perforation or abscess without bleeding; Z87.891 Personal history of nicotine dependence
CPT/HCPCS: 36415; 74177; 80053; 81003; 83605; 83690; 84484; 85025; 85610; 86140; 93005; 99283; Q9967

== ENCOUNTER 2016-11-08 22:38 | Emergency (ER) | payer MEDICARE, OTHER ==
--- NOTE | 2016-11-09 02:09 | PN ---
Progress Note - Progress Note Date of Service: 11/09/16 Note: Laceration of left ear was sutured by me. 4 simple interrupted sutures, single layer, placed at 1.5cm linear lac that is completely through ear cartilage helix. Irrigated and used sterile procedure. 4-0 prolene suture material. sterile pressure dressing applied, attempting to prevent cauliflower ear. 1% lidocaine without epi use to numb localized area. Patient tolerated procedure well without complication. Bleeding controlled.
[2016-11-09 02:28] VITALS: BP 134/57
--- NOTE | 2016-11-09 07:23 | RAD ---
INDICATION: Head injury, laceration. COMPARISON: Comparison is made with prior CT of the brain from July 20, 2016. TECHNIQUE: Contiguous axial sections of the brain were obtained from the skull base to the vertex without contrast. FINDINGS: The ventricles, cisterns and sulci are enlarged consistent with diffuse atrophy. There are multiple focal areas of decreased density in the subcortical and periventricular white matter suggestive of moderate chronic small vessel ischemic changes. There is no evidence for hemorrhage. No significant focal osseous abnormality is seen. The visualized portion of the paranasal sinuses and mastoid air cells appear clear. IMPRESSION: NO EVIDENCE FOR ACUTE INTRACRANIAL ABNORMALITY.
--- NOTE | 2016-11-22 05:50 | ED ---
I, Alonzo,Obey, scribed for Franky Merrill MD on 11/08/16 at 2257 . Complex/Multi-Sys Presentation - HPI Summary HPI Summary: LEVEL 5 CAVEAT secondary to dementia This 86 y/o female presents to ED from [place] for left ear laceration. Possible unwitnessed fall. Unknown if there was any head injury involved. Unknown MARTHA and time of fall. She is not noted with any visible ecchymosis or contusion upon examination. PMHx does includes dementia, tinnitus, vertigo, and osteoporosis. Pt is unable to provide history of her fall. Her status is DNR. - History Of Current Complaint Chief Complaint: EDRashSkinAbscess Time Seen by Provider: 11/08/16 22:51 Hx Obtained From: Patient Timing: Constant Associated Signs And Symptoms: Positive: Other - left ear laceration - Allergies/Home Medications Allergies/Adverse Reactions: Allergies Allergy/AdvReac Type Severity Reaction Status Date / Time No Known Allergies Allergy Verified 07/20/16 13:34 PMH/Surg Hx/FS Hx/Imm Hx Endocrine/Hematology History: Denies: Hx Diabetes, Hx Thyroid Disease Cardiovascular History: Denies: Hx Congestive Heart Failure, Hx Hypertension Respiratory History: Denies: Hx Asthma, Hx Chronic Obstructive Pulmonary Disease (COPD) GI History: Denies: Hx Ulcer History: Denies: Hx Dialysis, Hx Renal Disease Sensory History: Reports: Hx Contacts or Glasses - GLASSES, Hx Glaucoma - BILATERAL Denies: Hx Hearing Aid Opthamlomology History: Reports: Hx Contacts or Glasses - GLASSES, Hx Glaucoma - BILATERAL Neurological History: Reports: Hx Dementia, Other Neuro Impairments/Disorders - VERTIGO BEING TREATED BY DR. 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 BILATERAL CATERACT EXTRACTION WITH IOL IMPLANT, [facility]. APPENDECTOMY A CHILD Hx Anesthesia Reactions: No Infectious Disease History: No Infectious Disease History: Reports: History Other Infectious Disease - MEASLES Denies: Hx Clostridium Difficile, Hx Hepatitis, Hx Human Immunodeficiency Virus (HIV), Hx of Known/Suspected MRSA, Hx Shingles, Hx Tuberculosis, Hx Known/ Suspected VRE, Hx Known/Suspected VRSA, Traveled Outside the [place] in Last 30 Days - Family History Known Family History: Positive: Cardiac Disease - Father at an unspecified age. 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 Hx Substance Use: No Substance Use Type: Reports: None Hx Tobacco Use: Yes Smoking Status (MU): Former Smoker Length of Time of Smoking/Using Tobacco: 50 YEARS Have You Smoked in the Last Year: No Review of Systems - ROS Summary Review of Systems Summary: LEVEL 5 CAVEAT secondary to dementia Negative: Fever Positive: Other - Possible fall Positive: Other - left ear laceration All Other Systems Reviewed And Are Negative: No Physical Exam Triage Information Reviewed: Yes Vital Signs On Initial Exam: Initial Vitals Temp Pulse Resp BP Pulse Ox 99.8 F 75 16 139/76 98 11/08/16 22:39 11/08/16 22:39 11/08/16 22:39 11/08/16 22:39 11/08/16 22:39 Vital Signs Reviewed: Yes Appearance: Positive: Well-Appearing Skin: Positive: Warm, Other - lt ear lac Eyes: Positive: TANESHA Neck: Positive: Supple Respiratory/Lung Sounds: Positive: Clear to Auscultation, Breath Sounds Present Cardiovascular: Positive: RRR Abdomen Description: Positive: Nontender, Soft Musculoskeletal: Positive: Strength/ROM Intact Psychiatric: Positive: Affect/Mood Appropriate - Joce Coma Scale Coma Scale Total: 14 Diagnostics - Vital Signs Vital Signs Temp Pulse Resp BP Pulse Ox 11/08/16 22:39 99.8 F 75 16 139/76 98 - Laboratory Lab Statement: Any lab studies that have been ordered have been reviewed, and results considered in the medical decision making process. - CT Brain CT Interpretation: No Acute Changes CT Interpretation Completed By: Radiologist Complex Multi-Symp Course/Dx - Diagnoses Provider Diagnoses: Laceration Discharge - Discharge Plan Condition: Stable Disposition: HOME Patient Education Materials: Laceration (ED), Care For Your Stitches (ED) Referrals: Carol Cruz MD [Primary Care Provider] - 2 Days Additional Instructions: Be sure to have your stitches removed in 7-10 days. The documentation as recorded by the Alonzo ramos Soohyun accurately reflects the service I personally performed and the decisions made by , Franky Merrill MD.
== END 2016-11-09 02:31 | disposition home or self-care (01) ==
LOC: ED 22:38
DX: S01.312A Laceration without foreign body of left ear, initial encounter (principal); W19.XXXA Unspecified fall, initial encounter; Y92.9 Unspecified place or not applicable; F03.90 Unspecified dementia, unspecified severity, without behavioral disturbance, psychotic disturbance, mood disturbance, and anxiety; Z87.891 Personal history of nicotine dependence; Z66 Do not resuscitate
CPT/HCPCS: 12001; 70450; 99282

== ENCOUNTER 2017-05-15 15:34 | Inpatient (IN) | payer MEDICARE, OTHER ==
[2017-05-15] MEDS ORDERED: NS 0.9% 1000 ML* 1,000 ML IV ONE (15:35)
--- NOTE | 2017-05-15 15:52 | RAD ---
HISTORY: Neurological changes, code watts COMPARISONS: November 08, 2016 TECHNIQUE: Multiple contiguous axial CT scans were obtained of the head without intravenous contrast. FINDINGS: HEMORRHAGE/INFARCT: There is no hemorrhage or acute infarct. MASSES/SHIFT: There is no mass or shift. EXTRA-AXIAL SPACES: There are no extra-axial fluid collections. SULCI AND VENTRICLES: There is mild diffuse and proportional enlargement of the sulci and ventricles. CEREBRUM: There is encephalomalacia of the left postcentral gyrus, stable. There is encephalomalacia of the left inferior frontal lobe and anterior temporal lobe, stable. There is hypoattenuation of the periventricular and subcortical white matter, stable. BRAINSTEM: There are no focal parenchymal abnormalities. CEREBELLUM: There are no focal parenchymal abnormalities. VESSELS: The vessels are grossly normal. PARANASAL SINUSES: The paranasal sinuses are clear. ORBITS: The orbits are unremarkable. BONES AND SOFT TISSUE: No bone or soft tissue abnormalities are noted. OTHER: None IMPRESSION: 1. MULTIFOCAL ENCEPHALOMALACIA CONSISTENT WITH REMOTE INFARCT. 2. CHRONIC SMALL VESSEL ISCHEMIC CHANGES. 3. NO ACUTE INTRACRANIAL PATHOLOGY. PRELIMINARY FINDINGS WERE DISCUSSED WITH DR. CASTILLO AT APPROXIMATELY 3:47 PM ON MAY 15, 2017.
--- NOTE | 2017-05-15 16:13 | RAD ---
HISTORY: Neurological changes COMPARISONS: May 12, 2016 VIEWS: 1: frontal portable view of the chest at 4:00 PM FINDINGS: LINES AND TUBES: None. CARDIOMEDIASTINAL SILHOUETTE: The aorta is tortuous. The cardiomediastinal silhouette is otherwise normal for portable technique. PLEURA: The costophrenic angles are sharp. No pleural abnormalities are noted. LUNG PARENCHYMA: There is hyperinflation. ABDOMEN: The upper abdomen is clear. There is no subphrenic gas. BONES AND SOFT TISSUES: There is diffuse osteopenia. Degenerative changes are noted. IMPRESSION: NO ACTIVE CARDIOPULMONARY DISEASE.
[2017-05-15 16:28] LABS: ABS Basophils 0.1 10^3/ul (0-0.2); ABS Eosinophils 0.2 10^3/ul (0-0.6); ABS Lymphocytes 1.6 10^3/ul (1.0-4.8); ABS Monocytes 0.6 10^3/ul (0-0.8); ABS Neutrophils 8.8 10^3/ul (1.5-7.7); ABS Nucleated RBC 0 10^3/ul; Eosinophil % 1.7 % (0-6); Hematocrit 23 % (35-47); Hemoglobin 7.2 g/dl (12.0-16.0); Lymphocyte % 14.4 % (25-47); Mean Corpuscular HGB Conc 31 g/dl (31-36); Mean Corpuscular Hemoglobin 23 pg (27-31); Mean Corpuscular Volume 73 fL (80-97); Mean Platelet Volume 7 um3 (7.4-10.4); Nucleated Red Blood Cells % 0.1; Platelet Count 463 10^3/ul (150-450); Red Blood Count 3.17 10^6/ul (4.0-5.4); Red Cell Distribution Width 20 % (10.5-15); White Blood Count 11.3 10^3/ul (3.5-10.8)
[2017-05-15 16:32] LABS: INR 1.09 (0.77-1.02)
[2017-05-15 16:46] LABS: EGFR Non-African American 76.3 (>60)
[2017-05-15] MEDS ORDERED: Ondansetron INJ* 2 MG/ML VIAL IV PRN (17:21)
[2017-05-15] MEDS ORDERED: Aspirin Low Dose CHEW TAB* 81 MG PO ONE (17:28)
[2017-05-15] MEDS ORDERED: Polyethylene Glycol 3350* 17 GM PACKET PO PRN (17:28)
--- NOTE | 2017-05-15 18:13 | RAD ---
HISTORY: Right leg pain and swelling COMPARISONS: None relevant TECHNIQUE: Multiple transverse and longitudinal ultrasound images were obtained of the right lower extremity from the level of the common femoral vein inferiorly through to the infrapopliteal veins using grayscale, color Doppler, and spectral Doppler imaging with and without compression and with augmentation. Comparison images were obtained of the contralateral common femoral vein. FINDINGS: VEINS: The venous system of the right lower extremity is compressible throughout its course, with normal flow on color Doppler imaging and normal response to augmentation on spectral Doppler imaging. SOFT TISSUES: Unremarkable. OTHER FINDINGS: None. IMPRESSION: NO RIGHT LOWER EXTREMITY DEEP VEIN THROMBOSIS
[2017-05-15 18:42] LABS: Urine Appearance Clear; Urine Blood Negative (Negative); Urine Color Yellow; Urine Ketones Trace (Negative); Urine Protein Negative (Negative); Urine Specific Gravity 1.017 (1.010-1.030); Urine Urobilinogen Negative (Negative)
--- NOTE | 2017-05-15 19:02 | RAD ---
HISTORY: Right knee trauma COMPARISONS: None VIEWS: 3, Frontal and lateral views of the right knee, with lateral view of the distal right foreleg FINDINGS: BONE DENSITY: Normal. BONES: There is a nondisplaced comminuted fracture of the proximal tibia extending to the articular surface. There is probable and displaced fracture of the proximal fibula. The patient is status post internal fixation of the distal tibia and distal fibula, not well evaluated on this single lateral projection. JOINTS: There is a moderate joint effusion with lipohemarthrosis. ALIGNMENT: There is no dislocation. SOFT TISSUES: Unremarkable. OTHER FINDINGS: None. IMPRESSION: 1. COMMINUTED, NONDISPLACED TIBIAL PLATEAU FRACTURE. 2. THERE IS PROBABLE NONDISPLACED FRACTURE OF THE PROXIMAL FIBULA.
--- NOTE | 2017-05-15 19:46 | HP ---
CC: Dr. Blair * HISTORY AND PHYSICAL: DATE OF ADMISSION: 05/15/17 PRIMARY CARE PROVIDER: Dr. Blair. CONSULTING NEUROLOGIST: Dr. Smith. ATTENDING PHYSICIAN WHILE IN THE HOSPITAL: Dr. Frida Alejandro * (report dictated by Ap Shepherd NP) CHIEF COMPLAINT: 1. Fall. 2. Right-sided weakness and slurred speech. HISTORY OF PRESENT ILLNESS: I would like to preface the report by saying that the patient has dementia. She has been unable to give good history, but according to her friend , she was found on the ground at [place], was noted to have right-sided weakness, right facial droop, she was aphasic, and she was last seen normal around 2:30 prior to admission. So, she was brought in to the ED. A Code Tripp was called immediately. While down here though, she improved and returned to her baseline. She still had a little of bit of weakness on the right side according to her, but she is speaking better now. There were no reports of recent fevers, chills, nausea, vomiting. The patient when asking her if she had any right-sided weakness, she does not recall this. Her biggest complaint now is she is having right leg pain that started when she came in here to the ER. She denies having any chest pain currently or shortness of breath or headache. She says her speech seems better at baseline, but there was concern because of the possible TIA and stroke and we were asked to evaluate for admission. PAST MEDICAL HISTORY: Significant for: 1. Skin cancer. 2. Dementia. 3. Glaucoma. 4. Depression. PAST SURGICAL HISTORY: She has had skin excisions. MEDICATIONS: Home meds include: 1. Claritin 10 mg daily as needed. 2. Omeprazole 40 mg daily. 3. Vitamin C 500 mg daily. 4. Vitamin E 400 units p.o. daily. 5. Ferrous sulfate 325 mg daily. 6. Tylenol 500 mg p.o. t.i.d. 7. Travatan 1 drop both eyes at bedtime. 8. MiraLAX 17 g p.o. daily as needed. 9. Seroquel 25 mg at bedtime. 10. Cosopt 1 drop both eyes b.i.d. 11. Zoloft 100 mg daily. 12. Nasonex 1 spray both nares daily as needed. 13. Antivert 12.5 mg p.o. daily. 14. Aricept 10 mg daily. 15. Vitamin D 50,000 units p.o. monthly. ALLERGIES TO MEDICATIONS: Include no known drug allergies. FAMILY HISTORY: Unknown. SOCIAL HISTORY: She does not smoke. Does not drink. Lives at [place]. Surrogate decision makers are her niece and nephew. REVIEW OF SYSTEMS: There is no documented fever. She denied having any significant weight change. There is no double vision. She denies having any ear discharge. There were no reports of rhinorrhea. No sore throat. No thyroid enlargement. Denied having any chest pain. There was no orthopnea, no nocturnal dyspnea. There was no abdominal pain. No nausea, no vomiting. No dysuria, no frequency. There was no seizure, no loss of consciousness. No pruritus and no skin ulcerations. Review of 14 systems completed, all others negative. PHYSICAL EXAMINATION GENERAL: At this time, Ms. Tinajero is an 87-year-old female patient. She is sitting in the ED stretcher. She does not appear to be in any acute distress. VITAL SIGNS: Reveal blood pressure 157/66, pulse 63, respirations 16, O2 sat of 100%, temperature 97.8. HEENT: Head: Atraumatic. Eyes: Sclerae anicteric, not pale. Throat: Oral mucosa appears to be moist. No oropharyngeal erythema. NECK: Supple. LUNGS: Clear to auscultation. No wheezes, rales, or rhonchi. HEART: Sounds S1, S2. Regular rate and rhythm. No murmurs, rubs, or gallops. ABDOMEN: Soft, flat, nontender. Bowel sounds present. EXTREMITIES: Pulses were 2+ throughout. She is moving all her upper extremities with 5/5 strength. The right lower extremity, she does have pain particularly in the pretibial area and the pain is mostly with movement and her pain is just about the knee as well. NEUROLOGIC: She is awake to herself only. She is confused to time and place. Mammal Control Agent is equal. There is no facial drooping. Her speech appeared to be clear. [id number] intact bilaterally. She can lift up the left lower extremity. The right lower extremity is a little weak compared to the left lower extremity. I question if this is related to pain. She is able to lift it off the bed, but it does cause a significant amount of pain when she moves at the knee. No gross focal deficits. SKIN: Intact. DIAGNOSTIC STUDIES/LAB DATA: WBC of 11.3, RBC of 3.17, hemoglobin 7.2, hematocrit of 23 that is right near her baseline if you look from April of this year, she has a platelet count of 463. The INR was 1.09, the PTT was 16.6. Sodium 137, potassium 4, chloride of 108, bicarb 23, BUN 17, creatinine 0.72, glucose 125, lactate 1.6, calcium 8.8. Total bili 0.3, AST 11, ALT 7, alk phos 47. Troponin 0.04. Albumin of 3.1. LDL was 96, triglycerides were 95. She had a brain CT obtained today. It showed multifocal encephalomalacia consistent with remote infarct, chronic small vessel ischemic changes, no acute intracranial pathology. There was a chest x-ray, which showed no active cardiopulmonary disease. EKG shows sinus bradycardia, rate of 57, no ST elevations or T-wave inversions. Old medical records were reviewed. ASSESSMENT AND PLAN: Ms. Tinajero is an 87-year-old female patient coming in to the ED today with complaints of right-sided weakness and aphasia, which is now resolved. We were asked to evaluate for admission. She will be admitted under observation status for: 1. Transient ischemic attack. At this point, her symptoms have pretty much resolved and they are improving, so she was not deemed a candidate for tPA. She also has a recent history of possible gastrointestinal bleed. There have been no reports of melena or vomiting of blood noted. She today had the right- sided weakness and also trouble with her speech. A CT brain was negative. Dr. Smith had spoken at length with the family. They do not want aggressive measures. They would not want to evaluate with MRI or CTA. They would like conservative therapy, aspirin. We will hydrate her overnight. If her symptoms continue to resolve, we will probably recommend continuing her on aspirin. So, at this point, we will hold off on CTA of the head and neck. Hold off on echo and MRI unless family wants further workup. At this point, it was clear that they want conservative therapy according to Dr. Smith. I have yet to speak to the family, I am trying to get in touch with them. 2. Right lower extremity pain. She is moving, I manipulated the hip. There was no pain with that range of motion, but at the knee, there is pain with range of motion and there is tenderness with plantar and dorsiflexion. So, I will go ahead and get the ultrasound of that lower extremity and an x-ray as well to make sure there has been no fracture with the fall. We will continue to monitor. 3. Skin cancer. Continue meds as prescribed. 4. Glaucoma. Continue meds as prescribed. 5. Depression. Continue with supportive care. 6. Dementia. Continue with supportive care. 7. DVT prophylaxis. She will be placed on heparin subcu. 8. Code status. She is a DNR. 9. Fluids, electrolytes, and nutrition. She can have a heart healthy diet pending a bedside swallow eval. TIME SPENT: On admission 60 minutes, greater than half the time was spent face- to- face with the patient obtaining my history and physical; other half time was spent going over the plan of care with the patient and implementing plan of care. I did discuss the plan of care with my attending, Dr. Alejandro; she is in agreement. AP SHEPHERD NP [id number]/[facility] #: [id number] JORGE ALBERTO
[2017-05-15] MEDS ORDERED: traMADol TAB* 50 MG PO PRN (19:50)
--- NOTE | 2017-05-15 20:28 | CONS ---
NEUROLOGY CONSULTATION: DATE OF CONSULT: 05/15/17 LOCATION: She is in the emergency room, room 14 to be admitted. REFERRING PHYSICIAN: Dr. Flores. PRIMARY CARE DOCTOR: Dr. Blair. CHIEF COMPLAINT: Right-sided weakness. HISTORY OF PRESENT ILLNESS: Jeanie Tinajero is an 87-year-old right-handed woman, who lives at [place] and was last known well at 0230 this afternoon. This is according to her niece, who is her healthcare proxy. She was told they found her on the floor with weakness and inability to speak and she was brought into the emergency and Pamela Betancur was called. Said the staff at [facility] said they saw her walking around in her usual state of health at 0230. In the emergency room, she has a pretty obvious right hemiparesis and not able to provide intelligible language. She has a history of advanced Alzheimer's disease and can still walk, but has days where she just sits and does nothing and other days where she is not quite as amnestic and dysfunctional. She is not to be resuscitated nor intubated. There is also a question of possible recent intestinal bleeding based on development of her worsened anemia and the family has elected not to do any diagnostic studies to pursue as her quality of life is poor. Dr. Flores spoke with the primary care physician, Dr. Blair, confirming this information. Her past medical history is notable for recurrent evaluations for chest pain, which her niece says is probably recurrent abdominal pain. She has a history of diverticular disease confirmed by CT imaging last year. PAST MEDICAL HISTORY: Notable for glaucoma, depression, dementia, and multiple skin cancers, treated by Dr. Velazquez. MEDICATIONS: Taken at [place] currently consist of: 1. Sertraline 100 mg p.o. b.i.d. 2. Seroquel 25 mg p.o. b.i.d. 3. MiraLAX. 4. Meclizine 12.5 mg t.i.d. p.r.n. dizziness. 5. Donepezil 10 mg p.o. q. day. ALLERGIES: She is listed in the computer as having no drug allergies. REVIEW OF SYSTEMS: Review of systems is from the niece. She still ambulates. She complains of chest pain, which she feels is probably an abdominal disorder. She has not had any recent falls that she is aware of. There is no history of epilepsy or stroke. PHYSICAL EXAM: She is an elderly frail woman lying in the emergency room [facility]. Blood pressure on the monitor is about 120/70, heart rate 70, and appears to be sinus. Respirations about 14. Heart is in regular rhythm and I do not hear any murmurs. There are no cervical bruits. Head is atraumatic. Neurological exam: Pupils are equal at about 2.5 mm reacting weakly to light. Eye movements are full. She does not respond to visual threat on the right. She has a central pattern right facial droop. She weakly raises the right arm, but not completely. It drifts down rapidly. The left arm, she seemed to have good use, but does not understand commands to follow directions to test the strength. She is able to raise both legs off the bed, but the right one drifts down quickly than the left. She responds to nasal tickle better on the left than the right, but she does respond on the right as well. DIAGNOSTIC STUDIES/LAB DATA: So far includes CT scan of the brain, which reveals chronic ischemic disease and atrophy but no acute changes and no hemorrhages. There is no recent lab test as of yet, but her last night hemoglobin on was 7.2; back on 04/24/17, it was 7.3; back in September 2016, it was 11.3. IMPRESSION AND PLAN: Impression is that of left hemisphere transient ischemic attack or stroke. I think she is a high risk of intracranial hemorrhage at 87 years of age with advanced dementia. In addition, her quality of life is poor, and after discussion with the niece and her , we decided to do not give her tPA. This is also a consideration for possible intestinal bleeding, which has been opted not to be evaluated further. Discussed the prognosis at this point, which can include resolution of symptoms or worsening of stroke symptoms and ultimately mortality. Discussed the risk and benefits of tPA including the possibility of improved cerebral perfusion and better outcome but also risk of intracranial or gastrointestinal hemorrhage. They agree with not proceeding with tPA at this point in time. She is not to be resuscitated, but at this point we will go ahead and give her an aspirin and maintain IV hydration. We will not do a diagnostic workup for stroke at this point but rather see how she does over the next 24 hours or so. Hopefully, she recovers spontaneously with the use of aspirin and fluids and be able to swallow and be discharged, but if not then comfort care would be appropriate. I discussed my impression with Dr. Flores and Ap Shepherd NP, who will be evaluating from the hospitalist service. [id number]/[facility] #: [id number] MTDChrista
[2017-05-15] MEDS: NS 0.9% 1000 ML* 1,000 ML IV SCH (20:30)
[2017-05-15] MEDS: Dorzolamide/Timolol OPTH (NF) 10 ML BOT BOTH EYES SCH (22:24)
[2017-05-15] MEDS: Latanoprost 0.005%* 2.5 ml BTL BOTH EYES SCH (22:25)
[2017-05-15] MEDS: QUEtiapine TAB* 25 MG PO SCH (22:28)
[2017-05-15] MEDS: Heparin VIAL(*) 5000 UNITS/ML VIAL (FIVE THOUSAND) SUBCUT SCH (22:28)
[2017-05-16] MEDS: Heparin VIAL(*) 5000 UNITS/ML VIAL (FIVE THOUSAND) SUBCUT SCH (05:52)
[2017-05-16 06:01] LABS: INR 1.24 (0.77-1.02)
[2017-05-16 06:04] LABS: EGFR Non-African American 99.9 (>60); Hematocrit 18 % (35-47); Hemoglobin 5.6 g/dl (12.0-16.0); Mean Corpuscular HGB Conc 32 g/dl (31-36); Mean Corpuscular Hemoglobin 23 pg (27-31); Mean Corpuscular Volume 71 fL (80-97); Mean Platelet Volume 7 um3 (7.4-10.4); Platelet Count 407 10^3/ul (150-450); Red Blood Count 2.46 10^6/ul (4.0-5.4); Red Cell Distribution Width 19 % (10.5-15); White Blood Count 8.1 10^3/ul (3.5-10.8)
[2017-05-16 06:35] LABS: ABS Basophils 0.1 10^3/ul (0-0.2); ABS Eosinophils 0 10^3/ul (0-0.6); ABS Monocytes 0.5 10^3/ul (0-0.8); ABS Neutrophils 6.5 10^3/ul (1.5-7.7); ABS Nucleated RBC 0 10^3/ul; Eosinophil % 0.5 % (0-6); Lymphocyte % 11.8 % (25-47); Nucleated Red Blood Cells % 0
[2017-05-16] MEDS: NS 0.9% 1000 ML* 1,000 ML IV SCH (07:19)
--- NOTE | 2017-05-16 08:39 | PN ---
Subjective Date of Service: 05/16/17 Interval History: Pt examined today at the bedside. States that she is feeling well. She denies chest pain. Denies sob. Denies abdominal pain. Pt denies nausea and denies vomiting. ROS-denies fever, denies chills, denies chest pain, denies nausea, denies abdominal pain, denies lightheadedness, denies loc, denies sob, review of 11 systems completed all others negative, Objective Active Medications: Acetaminophen (Tylenol Tab*) 650 mg PO Q4H PRN PRN Reason: FEVER/PAIN Aspirin (Aspirin Low Dose Tab*) 81 mg PO DAILY ELOY Donepezil HCl (Aricept Tab*) 10 mg PO DAILY ELOY Dorzolamide/Timolol (Cosopt (Nf)) 1 drop BOTH EYES BID ELOY PRN Reason: Protocol Last Admin: 05/15/17 22:24 Dose: Not Given Ferrous Sulfate (Ferrous Sulfate Tab*) 325 mg PO DAILY [facility] Sodium Chloride (Ns 0.9% 1000 Ml*) 1,000 mls @ 100 mls/hr IV PER RATE ELOY Last Admin: 05/16/17 07:19 Dose: 100 mls/hr Latanoprost (Xalatan 0.005%*) 1 drop BOTH EYES BEDTIME ELOY PRN Reason: Protocol Last Admin: 05/15/17 22:25 Dose: Not Given Meclizine HCl (Antivert Tab*) 12.5 mg PO DAILY [facility] Omeprazole (Prilosec Cap*) 40 mg PO DAILY [facility] Ondansetron HCl (Zofran Inj*) 4 mg IV Q6H PRN PRN Reason: NAUSEA Polyethylene Glycol/Electrolytes (Miralax*) 17 gm PO DAILY PRN PRN Reason: CONSTIPATION Quetiapine Fumarate (Seroquel Tab*) 25 mg PO BEDTIME ELOY Last Admin: 05/15/17 22:28 Dose: 25 mg Sertraline HCl (Zoloft*) 100 mg PO DAILY ELOY Tramadol HCl (Ultram*) 50 mg PO Q8H PRN PRN Reason: PAIN Last Admin: 05/15/17 20:27 Dose: 50 mg Vital Signs - 8 hr 05/16/17 05/16/17 05/16/17 02:20 03:40 08:25 Temperature 98.0 F Pulse Rate 84 Respiratory 16 16 Rate Blood Pressure 106/54 (mmHg) O2 Sat by Pulse 97 98 Oximetry Oxygen Devices in Use Now: None Appearance: 87 y/o female patient, sitting in bed, NAD, Eyes: No Scleral Icterus, - - scerla pale Ears/Nose/Mouth/Throat: NL Teeth, Lips, Gums Neck: NL Appearance and Movements; NL JVP Respiratory: Symmetrical Chest Expansion and Respiratory Effort, Clear to Auscultation Cardiovascular: NL Sounds; No Murmurs; No JVD Abdominal: NL Sounds; No Tenderness; No Distention Extremities: No Edema Skin: No Rash or Ulcers Neurological: - - confused to time and place, speech clear, difficulty moving RLE due to pain and immobilizer, Lines/Tubes/Other Access: Clean, Dry and Intact PICC Line Result Diagrams: 05/16/17 05:42 05/16/17 05:42 Microbiology and Other Data: Microbiology 05/15/17 18:00 Influenza Types A,B Antigen (LETICIA) - Final Nasal Specimen received for Influenza A/B Molecular testing Assess/Plan/Problems-Billing Assessment: 87 y/o [place] [facility] [place] of weakness to right side and aphasia, now improved, - Patient Problems (1) DVT prophylaxis Current Visit: Yes Status: Acute Priority: High Comment: SCDs for now will avoid heparin due to drop in H and H (2) TIA (transient ischemic attack) Current Visit: Yes Status: Acute Priority: High Comment: mechanism unclear , family wishes for conservative therapy, they do not want carotid studies or MRI at this point as they would not want to pursue aggressive therapy, at this point Neuo following NO afib on monitor, mental status return to baseline, asa for now, neuro checks, tele, (3) Tibia fracture Current Visit: Yes Status: Acute Priority: High Comment: Ortho to see today, Non weight bearing status, knee imobilizer, (4) DNR (do not resuscitate) Current Visit: Yes Status: Acute Priority: High (5) FEN Current Visit: Yes Status: Acute Priority: High Comment: Heart Healthy Diet, (6) Anemia Current Visit: Yes Status: Acute Priority: High Comment: HGB 7 on admission, was 7 in april, down to 5 this am, no obvious signs of bleeding, no hematomas noted, checking iron studies, hemoccult sent, will transfuse 2units prbc and follow, (7) Dementia Current Visit: Yes Status: Acute Priority: High Comment: Continue with supportive care, (8) Glaucoma Current Visit: Yes Status: Acute Priority: High Comment: Continue eye drops, (9) Depression Current Visit: Yes Status: Acute Priority: High Comment: continue home meds, Status and Disposition: Will need SNF,
[2017-05-16] MEDS: Acetaminophen TAB* 325 MG PO PRN (09:26)
[2017-05-16] MEDS: Sertraline* 100 MG TAB PO SCH (09:27)
[2017-05-16] MEDS: Meclizine TAB* 12.5 MG PO SCH (09:27)
[2017-05-16] MEDS: Aspirin Low Dose CHEW TAB* 81 MG PO SCH (09:27)
[2017-05-16] MEDS: Ferrous Sulfate TAB* 325 MG PO SCH (09:27)
[2017-05-16] MEDS: Omeprazole CAP* 20 MG PO SCH (09:27)
[2017-05-16] MEDS: Dorzolamide/Timolol OPTH (NF) 10 ML BOT BOTH EYES SCH ×2 (09:28→20:37)
[2017-05-16] MEDS: Donepezil TAB* 5 MG PO SCH (09:34)
--- NOTE | 2017-05-16 12:18 | PN ---
Hospitalist Progress Note Date of Service: 05/16/17 Discussion with family and pcp plan at this point is for comfort care only. Then family requested to stop all testing and blood draw given patient severe dementia. Pt primary called me and she is in agreement. Will place hospice consult. Will stop transfusion and will stop anemia workup. Dr Blair did state to me that when karlie was first dx with dementia she had made it clear to not prolong her life should she progress into severe dementia.
--- NOTE | 2017-05-16 17:08 | CONS ---
CONSULTATION REPORT: DATE OF CONSULT: 05/15/17 ATTENDING PROVIDER: Dr. Gali Hua. PRIMARY CARE PROVIDER: Dr. Blair. CHIEF COMPLAINT: Fall, right-sided weakness and slurred speech, right lower extremity pain. HISTORY OF PRESENT ILLNESS: Ms. Tinajero is an 87-year-old female with history of dementia, glaucoma, skin cancer and depression, who presents to [facility] Emergency Room on 05/15/17 after being found on the ground at her home at [place] with right-sided weakness, right facial droop and aphasia. She was diagnosed after being evaluated in the emergency room with stroke versus TIA. The patient's mental status and weakness did improve some during her visit in the ER with her predominant complaint being right lower extremity pain, which started while she was in the emergency room. The patient does not recall falling. She does not recall how she hurt her leg. X-ray of her right lower leg shows a comminuted displaced tibial plateau fracture and a probable nondisplaced fracture of the proximal fibula. The patient states that her right lower extremity pain is currently present, but she is unable to give a number to quantify her pain. Pain is localized to the right knee only. She does not have any numbness, weakness or tingling down the right lower extremity. She feels uncomfortable to try and move the right lower extremity. PAST MEDICAL HISTORY: Skin cancer, dementia, glaucoma, depression, TIA versus stroke on this admission. PAST SURGICAL HISTORY: Skin excisions. MEDICATIONS: As noted in the chart. ALLERGIES TO MEDICATIONS: No known drug allergies. SOCIAL HISTORY: The patient is a former smoker, but has not smoked in many years. She does not drink alcohol. She lives at [place]. Her surrogate decision makers are her niece and her nephew. Her nephew, Tobi Jarvis, accompanies her today. REVIEW OF SYSTEMS: No chills. The patient does have fatigue, but no more than baseline. No headache. The patient does not know if she hit her head when she fell. Cardio: No chest pain. No irregular beats. Respiratory: No shortness of breath. No cough. GI: No abdominal pain. Neuro: Likely TIA versus stroke. The patient has not had any known stroke in the past. Skin: No lacerations or abrasions from the fall. No bruising from the fall known. Musculoskeletal: Right lower extremity right knee pain. PHYSICAL EXAM: Vitals: Temperature 99.7, pulse 79, respiratory rate 16, oxygen saturation 97%, blood pressure 111/50. General: The patient is lying comfortably in bed. She does not appear to be in any acute distress. Neuro: The patient does answer questions appropriately, though she is not oriented to time or place. She consistently repeat same questions including why SCDs are on her legs and what hospital we are in. Facial expression is symmetric. The patient has equal strength of bilateral floorworker and biceps. right lower extremity dorsiflexion and plantar flexion 4/5 on the right versus 5/5 on the left. Musculoskeletal: The patient is wearing an immobilizer on her right leg. She has tenderness over the pretibial region. She is nontender on the medial or lateral aspect of the knee. There is no gross deformity. Skin: is intact without any ecchymosis, abrasions, lacerations. Heart: S1, S2, regular rate and rhythm. No appreciable murmur. Respiratory: CTA BL. Abdomen: Soft, bowel sounds normoactive. No appreciable masses. DIAGNOSTIC STUDIES/LAB DATA: Hemoglobin 5.6, hematocrit 18, INR 1.24. Right lower extremity x-ray, impression shows comminuted nondisplaced tibial plateau fracture and probable nondisplaced fracture of the proximal fibula on the right side. Right lower extremity Doppler is negative for DVT. ASSESSMENT: Ms. Tinajero is an 87-year-old female with a right-sided tibial plateau fracture. PLAN: The patient will be nonweightbearing on her right lower extremity. I have ordered a range of motion brace, so the patient may have 0 to 30 degrees range of motion of her right knee. She will follow up in our office in 1 to 2 weeks. The patient is currently receiving packed red blood cells due to anemia. Ability to receive anticoagulation can be reevaluated once her H and H is stabilized. ROSA GARCIA [id number]/[facility] #: [id number] MTDD
--- NOTE | 2017-05-16 18:14 | ED ---
Jay Carter Angela, scribed for Rhys Flores MD on 05/15/17 at 1542 . Neurological HPI - HPI Summary HPI Summary: CODE MAC OVERHEAD AT 15:26, ETA 8 MINUTES. This pt is a 87 y/o female presenting to [facility] via EMS from [place] for right sided weakness and facial droop. 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 Per [place] staff, pt is usually ambulating and talking. At baseline pt is alert but not oriented. Pt has hx of dementia. HPI IS LIMITED DUE TO LEVEL 5 CAVEAT - pt has dementia. - History of Current Complaint Stated Complaint: STROKE LIKE SYMPTOMS Time Seen by Provider: 05/15/17 15:35 Hx Obtained From: EMS Onset/Duration: Started hours ago - 1, Still Present Timing: Constant Current Severity: Moderate Neurological Deficit Location: Facial, RUE, RLE Character: Weak, Other: - facial droop Aggravating: Nothing Alleviating: Nothing Associated Signs and Symptoms: Positive: Weakness - Allergy/Home Medications Allergies/Adverse Reactions: Allergies Allergy/AdvReac Type Severity Reaction Status Date / Time No Known Allergies Allergy Verified 07/20/16 13:34 Home Medications: Home Medications Acetaminophen [Acetaminophen Extra Strength] 500 mg PO TID 05/15/17 [History Confirmed 05/15/17] Ascorbic Acid TAB* [Vitamin C TAB*] 500 mg PO DAILY 05/15/17 [History Confirmed 05/15/17] Cholecalciferol TAB* [Vitamin D TAB*] 50,000 unit PO MONTHLY 05/15/17 [History Confirmed 05/15/17] Ferrous Sulfate TAB* 325 mg PO DAILY 05/15/17 [History Confirmed 05/15/17] LoraTADine TAB(NF) [Claritin 10 MG TAB(NF)] 10 mg PO DAILY PRN 05/15/17 [ History Confirmed 05/15/17] Omeprazole CAP* [Prilosec CAP* 20 MG] 40 mg PO DAILY 05/15/17 [History Confirmed 05/15/17] PMH/Surg Hx/FS Hx/Imm Hx Endocrine/Hematology History: Denies: Hx Diabetes, Hx Thyroid Disease Cardiovascular History: Denies: Hx Congestive Heart Failure, Hx Hypertension Respiratory History: Denies: Hx Asthma, Hx Chronic Obstructive Pulmonary Disease (COPD) GI History: Denies: Hx Ulcer History: Denies: Hx Dialysis, Hx Renal Disease Sensory History: Reports: Hx Contacts or Glasses - GLASSES, Hx Glaucoma - BILATERAL Denies: Hx Hearing Aid Opthamlomology History: Reports: Hx Contacts or Glasses - GLASSES, Hx Glaucoma - BILATERAL Neurological History: Reports: Hx Dementia, Other Neuro Impairments/Disorders - VERTIGO BEING TREATED BY DR. 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 BILATERAL CATERACT EXTRACTION WITH IOL IMPLANT, [facility]. APPENDECTOMY A CHILD Hx Anesthesia Reactions: No Infectious Disease History: Reports: History Other Infectious Disease - MEASLES Denies: Hx Clostridium Difficile, Hx Hepatitis, Hx Human Immunodeficiency Virus (HIV), Hx of Known/Suspected MRSA, Hx Shingles, Hx Tuberculosis, Hx Known/ Suspected VRE, Hx Known/Suspected VRSA - Family History Known Family History: Positive: Cardiac Disease - Father at an unspecified age. 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 Negative: Fever, Chills Neurological: Other - facial droop Positive: Weakness - on right side All Other Systems Reviewed And Are Negative: No Physical Exam - Summary Physical Exam Summary: VITAL SIGNS: Reviewed. GENERAL: Patient is a well-developed and nourished female who is lying comfortable in the stretcher. Patient is not in any acute respiratory distress. HEAD AND FACE: No signs of trauma. No ecchymosis, hematomas or skull depressions. No sinus tenderness. EYES: PERRLA, EOMI x 2, No injected conjunctiva, no nystagmus. No photophobia. EARS: Hearing grossly intact. Ear canals and tympanic membranes are within normal limits. MOUTH: Oropharynx within normal limits. NECK: Supple, trachea is midline, no adenopathy, no JVD, no carotid bruit, no c- spine tenderness, neck with full ROM. No meningeal signs, no Kernig's or brudzinskis signs. CHEST: Symmetric, no tenderness at palpation LUNGS: Clear to auscultation bilaterally. No wheezing or crackles. CVS: Regular rate and rhythm, S1 and S2 present, no murmurs or gallops appreciated. ABDOMEN: Soft, non-tender. No signs of distention. No rebound no guarding, and no masses palpated. Bowel sounds are normal. EXTREMITIES: FROM in all major joints, no edema, no cyanosis or clubbing. NEURO: Alert and but not oriented. Pt has right sided weakness in UE and LE. Pt has facial droop. Exam is difficulty because pt does not follow commands secondary to dementia. SKIN: Dry and warm GCS: 13 Triage Information Reviewed: Yes Vital Signs Reviewed: Yes Diagnostics - Laboratory Result Diagrams: 05/15/17 16:10 05/15/17 16:10 Lab Statement: Any lab studies that have been ordered have been reviewed, and results considered in the medical decision making process. - Radiology Chest XR Xray Interpretation: No Acute Changes - IMPRESSION: No active cardiopulmonary disease. Dr. Flores has reviewed this radiology report. Radiology Interpretation Completed By: Radiologist - CT brain CT CT Interpretation: No Acute Changes - IMPRESSION: 1. Multifocal encephalomalacia consistent with remote infarct. 2. Chronic small vessel ischemic changes. 3. No acute intracranial pathology. Dr. Flores has reviewed this radiology report. CT Interpretation Completed By: Radiologist - EKG 15:43 Cardiac Rate: Bradycardia EKG Rhythm: Sinus Bradycardia - at 57 bpm EKG Interpretation: No ST elevation NIH Scale - NIH Scale Level of Consciousness: Alert/Keenly Responsive Ask Patient the Month and His/Her Age: Neither Correct/Aphasic Ask Pt to Open/Close Eyes and Machine Preservative Filler/Release Non-Paretic Hand: One Correctly Best Gaze (Only Horizontal Eye Movement): Normal Visual Field Testing: No Visual Loss Facial Paresis-Pt to Smile & Close Eyes or Grimace Symmetry: Minor Paralysis Motor Function - Right Arm: Drifts LT 10 seconds Motor Function - Left Arm: No Drift-Holds 10 Seconds Motor Function - Right Leg: Drifts LT 10 seconds Motor Function - Left Leg: No Drift-Holds 10 Seconds Limb Ataxia-Must be out of Proportion to Weakness Present: Present in One Limb Sensory (Use Pinprick to Test Arms/Legs/Trunk/Face): Pinprick Less on Affected Best Language (Describe Picture, Name Items): Some Loss Dysarthria (Read Several Words): Slurs Some Words Extinction and Inattention: Inattention Total Score: 11 NIH Stroke Scale Comment: The pt does not really follow commands because she has dementia. It is a really difficult exam. Course/Dx - Course Assessment/Plan: YAYO QUIÑONES OVERHEAD AT 15:26, ETA 8 MINUTES. This pt is a 87 y/ o female presenting to [facility] via EMS from [place] for right sided weakness and facial droop. 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 Per [place] staff, pt is usually ambulating and talking. At baseline pt is alert but not oriented. Pt has hx of dementia. HPI IS LIMITED DUE TO LEVEL 5 CAVEAT - pt has dementia. In the ED course, the pt had right sided weakness therefore we called a code mac. Test results without any significant abnormalities except WBC of 11.3, she has decreased H and H of 7.2/23, troponin is 0.04. Head CT is negative for an acute pathology. I discussed the case with Dr. Smith, neurologist, who came and examined the pt. I also spoke with Dr. Blair, PCP, and reports the pt is not a candidate for tPA because H&H is low, there is a question of bleeding, and family member wants comfort measures. Dr. Smith examined the pt and recommends admission to the hospitalist for further work up and management. Pt does not have any changes in the ED. I discussed case with Dr. Alejandro, hospitalist, who has agreed to admit the pt. Pt is hemodynamically stable. - Diagnoses Provider Diagnoses: Ischemic cerebrovascular accident (CVA) During the Visit The Following Alert/Code Occurred: Yayo Quiñones - overhead at 15: 26, ETA 8 minutes - Physician Notifications Discussed Care Of Patient With: Chadwick Madrigal Time Discussed With Above Provider: 15:48 Instructed by Provider To: Other - Dr. Madrigal, radiologist, called to report the pt had multiple old infarcts in the past but has nothing acute today. [15:57 ] I discussed pt care with Dr. Smith, neurologist, who will come see the pt in the ED. [16:10] I spoke with Dr. Blair, pt's PCP, who spoke with the pt's daughter and states she doesn't wan't tPA. There is also a quesiton if the pt is bleeding. [17:04] I discussed case with Dr. Alejandro, hospitalist, who has agreed to admit the pt. - Critical Care Time Critical Care Time: 75-104 min Discharge - Discharge Plan Condition: Stable Disposition: ADMITTED TO [facility] The documentation as recorded by the Jay ramos Angela accurately reflects the service I personally performed and the decisions made by me, Rhys Flores MD.
[2017-05-16] MEDS: Latanoprost 0.005%* 2.5 ml BTL BOTH EYES SCH (20:36)
[2017-05-16] MEDS: QUEtiapine TAB* 25 MG PO SCH (20:37)
[2017-05-17] MEDS: Sertraline* 100 MG TAB PO SCH (08:04)
[2017-05-17] MEDS: Acetaminophen TAB* 325 MG PO PRN ×2 (08:04→20:47)
[2017-05-17] MEDS: Ferrous Sulfate TAB* 325 MG PO SCH (08:04)
[2017-05-17] MEDS: Omeprazole CAP* 20 MG PO SCH (08:04)
[2017-05-17] MEDS: Aspirin Low Dose CHEW TAB* 81 MG PO SCH (08:04)
[2017-05-17] MEDS: Donepezil TAB* 5 MG PO SCH (08:05)
[2017-05-17] MEDS: Meclizine TAB* 12.5 MG PO SCH (08:05)
[2017-05-17] MEDS: Dorzolamide/Timolol OPTH (NF) 10 ML BOT BOTH EYES SCH ×2 (11:11→20:46)
--- NOTE | 2017-05-17 12:33 | PN ---
Progress Note - Progress Note Date of Service: 05/17/17 SOAP: Subjective: []Patient seen at bedside. She reports some pain of RLE but is unable to give a quantitative value. Objective: [] General: Well appearing, NAD RLE: Hinged brace in place. Adjusted to allow 0-30 degree ROM, was locked at 0 degrees. No tenderness to gentle palpation of anterior, lateral, medial or posterior knee or the anterior tibia. BL LE: Calves supple and nontender without erythema, edema or palpable cords Vital Signs Temp 99.7 F 05/16/17 07:41 Pulse 79 05/16/17 07:41 Resp 20 05/17/17 07:05 BP 111/50 05/16/17 07:41 Pulse Ox 96 05/17/17 08:10 Intake & Output 05/16/17 05/17/17 05/17/17 18:59 06:59 18:59 Intake Total 2189 100 450 Output Total 150 Balance 2039 100 450 Intake: IV Fluids 1404 0 NS (0.9%) 215 0 Oral 500 100 450 Packed Cells 285 Output: Urine 150 Other: Estimated Void Small Small # Voids 1 1 Laboratory Last Values WBC 8.1 10^3/ul (3.5-10.8) 05/16/17 05:42 RBC 2.46 10^6/ul (4.0-5.4) L 05/16/17 05:42 Hgb 5.6 g/dl (12.0-16.0) L* 05/16/17 05:42 Hct 18 % (35-47) L 05/16/17 05:42 MCV 71 fL (80-97) L 05/16/17 05:42 MCH 23 pg (27-31) L 05/16/17 05:42 MCHC 32 g/dl (31-36) 05/16/17 05:42 RDW 19 % (10.5-15) H 05/16/17 05:42 Plt Count 407 10^3/ul (150-450) 05/16/17 05:42 MPV 7 um3 (7.4-10.4) L 05/16/17 05:42 Neut % (Auto) 80.4 % (38-83) 05/16/17 05:42 Lymph % (Auto) 11.8 % (25-47) L 05/16/17 05:42 Harper % (Auto) 6.7 % (1-9) 05/16/17 05:42 Eos % (Auto) 0.5 % (0-6) 05/16/17 05:42 Baso % (Auto) 0.6 % (0-2) 05/16/17 05:42 Absolute Neuts (auto) 6.5 10^3/ul (1.5-7.7) 05/16/17 05:42 Absolute Lymphs (auto) 1.0 10^3/ul (1.0-4.8) 05/16/17 05:42 Absolute Monos (auto) 0.5 10^3/ul (0-0.8) 05/16/17 05:42 Absolute Eos (auto) 0 10^3/ul (0-0.6) 05/16/17 05:42 Absolute Basos (auto) 0.1 10^3/ul (0-0.2) 05/16/17 05:42 Absolute Nucleated RBC 0 10^3/ul 05/16/17 05:42 Nucleated RBC % 0 05/16/17 05:42 INR (Anticoag Therapy) 1.24 (0.77-1.02) H 05/16/17 05:42 APTT 16.6 seconds (26.0-36.3) L 05/15/17 16:10 Sodium 137 mmol/L (133-145) 05/16/17 05:42 Potassium 3.5 mmol/L (3.5-5.0) 05/16/17 05:42 Chloride 110 mmol/L (101-111) 05/16/17 05:42 Carbon Dioxide 23 mmol/L (22-32) 05/16/17 05:42 Anion Gap 4 mmol/L (2-11) 05/16/17 05:42 BUN 17 mg/dL (6-24) 05/16/17 05:42 Creatinine 0.57 mg/dL (0.51-0.95) 05/16/17 05:42 Est GFR ( Amer) 128.4 (>60) 05/16/17 05:42 Est GFR (Non-Af Amer) 99.9 (>60) 05/16/17 05:42 BUN/Creatinine Ratio 29.8 (8-20) H 05/16/17 05:42 Glucose 116 mg/dL (70-100) H 05/16/17 05:42 Hemoglobin A1c 5.7 % (4.0-5.6) H 05/16/17 05:42 Lactic Acid 1.6 mmol/L (0.5-2.0) 05/15/17 16:28 Calcium 8.0 mg/dL (8.6-10.3) L 05/16/17 05:42 Iron < 15 ug/dL (50-212) L 05/16/17 05:42 TIBC 392 mcg/dL (250-450) D 05/16/17 05:42 % Saturation 4 % (15-55) L 05/16/17 05:42 Unsat Iron Binding 377.56660 ug/dL 05/16/17 05:42 Ferritin < 10.0 ng/mL (11-307) L 05/16/17 05:42 Total Bilirubin 0.30 mg/dL (0.2-1.0) 05/15/17 16:10 AST 11 U/L (13-39) L 05/15/17 16:10 ALT 7 U/L (7-52) 05/15/17 16:10 Alkaline Phosphatase 47 U/L (34-104) 05/15/17 16:10 Troponin I 0.04 ng/mL (<0.04) H* 05/15/17 22:23 Total Protein 6.0 g/dL (6.4-8.9) L 05/15/17 16:10 Albumin 3.1 g/dL (3.2-5.2) L 05/15/17 16:10 Globulin 2.9 g/dL (2-4) 05/15/17 16:10 Albumin/Globulin Ratio 1.1 (1-3) 05/15/17 16:10 Triglycerides 73 mg/dL 05/16/17 05:42 Cholesterol 136 mg/dL 05/16/17 05:42 LDL Cholesterol 81 mg/dL 05/16/17 05:42 HDL Cholesterol 40.3 mg/dL 05/16/17 05:42 Vitamin B12 470 pg/mL (180-914) 05/16/17 05:42 Folate 12.71 ng/mL (>3.99) 05/16/17 05:42 Urine Color Yellow 05/15/17 18:23 Urine Appearance Clear 05/15/17 18:23 Urine pH 6.0 (5-9) 05/15/17 18:23 Ur Specific [place] 1.017 (1.010-1.030) 05/15/17 18:23 Urine Protein Negative (Negative) 05/15/17 18:23 Urine Ketones Trace (Negative) H 05/15/17 18:23 Urine Blood Negative (Negative) 05/15/17 18:23 Urine Nitrate Negative (Negative) 05/15/17 18:23 Urine Bilirubin Negative (Negative) 05/15/17 18:23 Urine Urobilinogen Negative (Negative) 05/15/17 18:23 Ur Leukocyte Esterase Negative (Negative) 05/15/17 18:23 Urine Glucose Negative (Negative) 05/15/17 18:23 Urine Ascorbic Acid * (Negative) H 05/15/17 18:23 Influenza A (Rapid) Negative (Negative) 05/15/17 18:29 Influenza B (Rapid) Negative (Negative) 05/15/17 18:29 Blood Type O Positive 05/15/17 16:28 Antibody Screen Negative 05/15/17 16:28 Crossmatch See Detail 05/15/17 16:28 Assessment: []Tibial plateau fracture right side Plan: []Right knee brace 0-30 degrees ROM NWB RLE Follow up with Dr Hua in office in 1-2 weeks
--- NOTE | 2017-05-17 13:54 | DCNOTE ---
Subjective Date of Service: 05/17/17 Interval History: No c/o. Objective Active Medications: Acetaminophen (Tylenol Tab*) 650 mg PO Q4H PRN PRN Reason: FEVER/PAIN Last Admin: 05/17/17 08:04 Dose: 650 mg Donepezil HCl (Aricept Tab*) 10 mg PO DAILY [facility] Last Admin: 05/17/17 08:05 Dose: 10 mg Dorzolamide/Timolol (Cosopt (Nf)) 1 drop BOTH EYES BID ELOY PRN Reason: Protocol Last Admin: 05/17/17 11:11 Dose: Not Given Latanoprost (Xalatan 0.005%*) 1 drop BOTH EYES BEDTIME ELOY PRN Reason: Protocol Last Admin: 05/16/17 20:36 Dose: 1 drop Meclizine HCl (Antivert Tab*) 12.5 mg PO DAILY [facility] Last Admin: 05/17/17 08:05 Dose: 12.5 mg Omeprazole (Prilosec Cap*) 40 mg PO DAILY [facility] Last Admin: 05/17/17 08:04 Dose: 40 mg Ondansetron HCl (Zofran Inj*) 4 mg IV Q6H PRN PRN Reason: NAUSEA Polyethylene Glycol/Electrolytes (Miralax*) 17 gm PO DAILY PRN PRN Reason: CONSTIPATION Quetiapine Fumarate (Seroquel Tab*) 25 mg PO BEDTIME [facility] Last Admin: 05/16/17 20:37 Dose: 25 mg Sertraline HCl (Zoloft*) 100 mg PO DAILY [facility] Last Admin: 05/17/17 08:04 Dose: 100 mg Tramadol HCl (Ultram*) 50 mg PO Q8H PRN PRN Reason: PAIN Last Admin: 05/15/17 20:27 Dose: 50 mg Vital Signs - 8 hr 05/17/17 05/17/17 07:05 08:10 Respiratory 20 Rate O2 Sat by Pulse 96 Oximetry Oxygen Devices in Use Now: None Appearance: Lethargic but responds well. Partly up in bed. Neutral affect. Looks comfortable. Eyes: No Scleral Icterus Neck: NL Appearance and Movements; NL JVP, No Thyroid Enlargement, Masses Respiratory: Symmetrical Chest Expansion and Respiratory Effort, Clear to Auscultation, Clear to Percussion Cardiovascular: NL Sounds; No Murmurs; No JVD, RRR, No Edema, - Extremities: No Edema, No Clubbing, Cyanosis, - - R knee immobilizer in place. Skin: No Rash or Ulcers, No Nodules or Sclerosis, - Neurological: NL Sensation - Able to state her full name but not answer any other questions. No tremor. Result Diagrams: 05/16/17 05:42 05/16/17 05:42 Microbiology and Other Data: Microbiology 05/15/17 18:00 Influenza Types A,B Antigen (LETICIA) - Final Nasal Specimen received for Influenza A/B Molecular testing Assess/Plan/Problems-Billing Assessment: 87 y/o female patient presenting to [facility] [place] with complaints of weakness to right side and aphasia, now improved, - Patient Problems (1) Dementia Current Visit: Yes Status: Acute Priority: High Code(s): F03.90 - UNSPECIFIED DEMENTIA WITHOUT BEHAVIORAL DISTURBANCE SNOMED Code(s): 96506101 Comment: Advanced. Family requests comfort measures only. (2) Fracture of right tibial plateau Current Visit: Yes Status: Acute Code(s): S82.141A - DISPLACED BICONDYLAR FRACTURE OF RIGHT TIBIA, INIT SNOMED Code(s): 287971481 Comment: Knee immobilizer in place. (3) Anemia Current Visit: Yes Status: Acute Priority: High Code(s): D64.9 - ANEMIA, UNSPECIFIED SNOMED Code(s): 674993535 Comment: Received 1 Unit RBC's 05/16/17. Etiology not clear, but will not investigate due to comfort measures only status. Status and Disposition: Discharge to [facility] 05/18/17.
--- NOTE | 2017-05-17 14:02 | PN ---
Progress Note - Progress Note Date of Service: 05/17/17 Note: Time spent on discharge 45 minutes.
--- NOTE | 2017-05-17 16:43 | TRS ---
CC: Dr. Blair * DATE OF ADMISSION: 05/15/2017. DATE OF TRANSFER: 05/18/2017. This is being dictated in advance. HISTORY OF PRESENT ILLNESS: This 87-year-old woman presented after a fall. She also had some right-sided weakness and slurred speech. The history is detailed in the admission note. She was felt to have probably had a TIA. X-ray of the right leg showed a right tibial plateau fracture and possible nondisplaced fracture of the tibia. The patient had advanced dementia. On further discussion with the family, they have requested no further testing of any kind, no further blood work, and comfort care measures only. I note the patient did have severe anemia and was given one unit of packed cells. The cause of the anemia is not clear. No obvious bleeding was noted. FINAL DIAGNOSES: 1. Advanced dementia. 2. Severe anemia. 3. Right tibial plateau fracture. 4. Glaucoma. DISCHARGE MEDICATIONS: 1. Donepezil 10 mg daily. 2. Acetaminophen 650 mg every 4 hours prn. 3. Travoprost Z 0.004% one drop both eyes at bedtime. 4. Sertraline 100 mg daily. 5. Meclizine 12.5 mg daily. 6. Dorzolamide/Timolol one drop both eye b.i.d. 7. Quetiapine 25 mg at bedtime. 8. Mometasone nasal spray both nares prn. 9. Polyethylene Glycol 17 gm daily prn. 10. Acetaminophen 500 mg t.i.d. 11. Loratadine 10 mg daily prn. 12. Omeprazole 40 mg daily. [id number]/[facility] #: [id number] [facility]
[2017-05-17] MEDS: QUEtiapine TAB* 25 MG PO SCH (20:47)
[2017-05-17] MEDS: Latanoprost 0.005%* 2.5 ml BTL BOTH EYES SCH (20:48)
[2017-05-18 00:17] VITALS: BP 96/50
[2017-05-18] MEDS: Dorzolamide/Timolol OPTH (NF) 10 ML BOT BOTH EYES SCH (09:02)
[2017-05-18] MEDS: Meclizine TAB* 12.5 MG PO SCH (09:07)
[2017-05-18] MEDS: Sertraline* 100 MG TAB PO SCH (09:07)
[2017-05-18] MEDS: Donepezil TAB* 5 MG PO SCH (09:07)
[2017-05-18] MEDS: Omeprazole CAP* 20 MG PO SCH (09:07)
== END 2017-05-18 11:40 | DRG 69 ==
LOC: ED 15:34 → MEDTELE 17:16 → OBSVTOIN 18:00 → MEDTELE 18:27 → OBSVTOIN 05-16 08:32 → INTOOBSV 05-16 08:32
PROVIDERS: ADMIT Internal Medicine; ATTEND Internal Medicine
PROC: 30233N1 Transfusion of Nonautologous Red Blood Cells into Peripheral Vein, Percutaneous Approach (ICD-10-PCS; principal; 2017-05-16)
PROC: 2W3LX3Z Immobilization of Right Lower Extremity using Brace (ICD-10-PCS; 2017-05-17)
DX: G45.9 Transient cerebral ischemic attack, unspecified (principal); D64.9 Anemia, unspecified; G30.9 Alzheimer's disease, unspecified; S82.141A Displaced bicondylar fracture of right tibia, initial encounter for closed fracture; F02.80 Dementia in other diseases classified elsewhere, unspecified severity, without behavioral disturbance, psychotic disturbance, mood disturbance, and anxiety; F32.9 Major depressive disorder, single episode, unspecified; R00.1 Bradycardia, unspecified; H40.9 Unspecified glaucoma; R29.711 NIHSS score 11; W19.XXXA Unspecified fall, initial encounter; Z66 Do not resuscitate; Z51.5 Encounter for palliative care; Z98.42 Cataract extraction status, left eye; Z98.41 Cataract extraction status, right eye; Z82.49 Family history of ischemic heart disease and other diseases of the circulatory system; Z87.891 Personal history of nicotine dependence; Z85.828 Personal history of other malignant neoplasm of skin; Y92.009 Unspecified place in unspecified non-institutional (private) residence as the place of occurrence of the external cause
CPT/HCPCS: 36415; 70450; 71045; 80048; 80053; 80061; 81003; 82272; 82607; 82728; 82746; 83036; 83540; 83550; 83605; 84484; 85025; 85610; 85730; 86850; 86900; 86901; 86922; 87502; 93005; 94760; 99285; A9270-GY; J1644; P9040

== ENCOUNTER 2017-06-02 10:38 | Emergency (ER) | payer MEDICARE, OTHER ==
--- OUTSIDE RECORDS SUMMARY | 2017-06-02 10:57 | XMS REPORT ---
:1930 External Reference #:[id number] Author Organization [facility] [employer] Address [address] [address] Phone [phone] Care Team Providers Name Role Phone Carol Blair MD Primary Care Physician Unavailable Payers Type Date Identification Numbers Payment Provider Subscriber Medicare Primary Effective: Policy Number: Medicare Jeanie Hicks 1996 [id number] PayID: [id number] [address] [place] [address] [facility] Part B Policy Number: [id number] [facility] Jeanie Hicks PayID: [id number] [address] [place] [address] Problems Date Description Provider Status Onset: 08/03/2014 Alzheimer's disease Socorro Plummer NP Active Family History Date Family Member(s) Problem(s) Comments General Parkinson's Disease Social History Type Date Description Comments Lives With Assisted living Occupation Unemployed ETOH Use Currently consumes alcohol 3-5 drinks a week Smoking Patient is a former smoker Exercise Type/Frequency Does not exercise Allergies, Adverse Reactions, Alerts Date Description Reaction Status Severity Comments 05/05/2009 NKDA active Medications Medication Date Status Form Strength Qnty SIG Indications Ordering Provider Omeprazole 05/30/ Active Capsules DR 40mg 90cap 1 by Gali carrillo mouth Hua, every M.D. day Aricept / Active Tablets 10mg 30tab 1 by Socorro 0000 lorena Plummer NP every day Meclizine HCL / Active Tablets 12.5mg 12tab tid prn Unknown 0000 s Dorzolamide HCL / Active Solution 2% 10ml instill Unknown 0000 one gtt into each eye daily Multivitamins 00/ Active Capsules 30cap 1 Unknown 0000 s capsule daily Vitamin E / Active Capsules 400Unit 30cap 1 po qd Unknown 0000 s Miralax / Active Packet 3350NF 1Mon 17 gm qd Unknown 0000 prn Gas-X / Active Chewtabs 80mg 1 tab Unknown 0000 daily prn Nasonex / Active Suspension 50mcg/Act 1unit 2 sprays Unknown 0000 s to each nostril daily Ibuprofen / Active Capsules 200mg 1 cap po Unknown 0000 prn Timolol Maleate / Active Solution 0.5% 1 gtt Ramirez, 0000 each eye Gerald Velazquez, daily Travatanéstor Z / Active Solution 0.004% 1 gtt James, 0000 each eye Gerald Velazquez, [facility] Sertraline HCL / Active Tablets 100mg 2 tabs Jander, 0000 po daily MD Carol Hydrocodone/Viraj / Active Tablets 5-325mg Monacelli, taminophen 0000 MD Franky Econazole / Active Cream 1% Nahomi, Nitrate 0000 MD Diamante Calcium 500 + D / Active Tablets 500-125mg- 1 po Unknown 0000 Unit daily Tamiflu / Active Unknown 0000 Namenda 05/05/ Hx Tablets Not Sure 1 po bid Qian 2009 Aram M.D. 2012 Aricept 05/05/ Hx Tablets Not Sure 30tab 1 po qd Qian 2009 Aram, M.D. 2012 Zoloft 05/05/ Hx Tablets 100mg 30tab 2 po Qian2009 daily Aram, M.D. 2013 Namenda / Hx Tablets 10mg 60tab 1 po bid Ana Jany - s Nabeel M.D. 2013 Travatan Z / Hx Solution 0.004% 5ml 1 drop Unknown 0000 - in each 05/27/ eye qhs 2013 Calcium 600+D3 / Hx Tablets 600-400mg- Unknown 0000 - Unit 2013 Etodolac / Hx Tablets 500mg 1 tab po Unknown 0000 - prn pain 2013 Timolol Maleate / Hx Solution 0.5% Ramirez 0000 Su Velazquez 2013 Donepezil HCL / Hx Tablets 5mg Virgilio Blair MD 2013 Sertraline HCL / Hx Tablets 25mg Rossy Su Medina MD 2013 Meclizine HCL / Hx Tablets 12.5mg Virgilio Blair MD 2013 Sertraline HCL / Hx Tablets 100mg Unknown 0000 - 2013 Donepezil HCL / Hx Tablets 10mg Virgilio Blair MD 2013 Sertraline HCL / Hx Tablets 25mg 30tab 1 po qd Unknown 0000 - s 2014 Namenda / Hx Tablets 5mg 180ta 1 po bid Unknown 0000 - bs 2013 Vital Signs Date Vital Result Comment 05/30/2017 Height 69 inches 5'9" Weight 145.00 lb Heart Rate 70 /min BP Systolic 100 mmHg BP Diastolic 76 mmHg Respiratory Rate 17 /min Body Temperature 97.6 F Pain Level 0 BMI (Body Mass Index) 21.4 kg/m2 07/30/2014 Height 68 inches 5'8" Heart Rate 60 /min BP Systolic Sitting 118 mmHg BP Diastolic Sitting 72 mmHg Respiratory Rate 16 /min 01/29/2014 Height 68 inches 5'8" Weight 140.00 lb Heart Rate 62 /min BP Systolic Sitting 110 mmHg BP Diastolic Sitting 72 mmHg Respiratory Rate 16 /min BMI (Body Mass Index) 21.3 kg/m2 05/27/2013 Heart Rate 72 /min BP Systolic Sitting 140 mmHg BP Diastolic Sitting 76 mmHg Respiratory Rate 16 /min 10/29/2012 Heart Rate 78 /min BP Systolic Sitting 122 mmHg BP Diastolic Sitting 74 mmHg Respiratory Rate 15 /min 05/05/2009 Weight 143.50 lb Heart Rate 78 /min BP Systolic Sitting 126 mmHg BP Diastolic Sitting 60 mmHg Results Test Date Test Result H/L Range Note Basic Metabolic Panel 06/04/2014 Sodium 136 mmol/L 133-145 Potassium 4.7 mmol/L 3.5-5.0 Chloride 103 mmol/L 101-111 Co2 Carbon Dioxide 29 mmol/L 22-32 Anion Gap 4 mmol/L 2-11 Glucose 78 mg/dL 70-100 Blood Urea Nitrogen 21 mg/dL 6-24 Creatinine 0.86 mg/dL 0.51-0.95 BUN/Creatinine Ratio 24.4 High 8-20 Calcium 9.2 mg/dL 8.6-10.3 Egfr Non- 62.6 >60 Egfr 80.5 >60 1 Laboratory test finding 06/04/2014 Vitamin B12 561 pg/mL 180-914 2 TSH (Thyroid Stimulating Horm) 1.56 IU/mL 0.34-5.60 1 Because ethnic data is not always readily available, this report includes an eGFR for both -Americans and non- Americans. The National Kidney Disease Education Program (NKDEP) does not endorse the use of the MDRD equation for patients that are not between the ages of 18 and 70, are , have extremes of body size, muscle mass, or nutritional status, or are non- or non-. According to the National Kidney Foundation, irrespective of diagnosis, the stage of the disease is based on the level of kidney function: Stage Description GFR(mL/min/1.73 m(2)) 1 Kidney damage with normal or decreased GFR 90 2 Kidney damage with mild decrease in GFR 60-89 3 Moderate decrease in GFR 30-59 4 Severe decrease in GFR 15-29 5 Kidney failure <15 (or dialysis) 2 Normal Range 180 to 914 Indeterminate Range 145 to 180 Deficient Range <145 Procedures Date CPT Code Description Status 05/30/2017 23126 FX Tibial Shaft Care Completed Encounters Type Date Location Provider CPT E/M Dx Office Visit 05/15/2017 [facility] [place], [address] G45.9 2:norma Coffman G30.9 F02.80 Office Visit 07/30/2014 3:00p [place] [address] 331.0 [facility] Office Visit 01/29/2014 3:45p Jess Lees 52364 331.0 [facility] 294.10 Office Visit 05/27/2013 11:45a Jess Lees 30789 331.0 [facility] M.Lola 294.10 Office Visit 10/29/2012 11:45a [facility] Ana Lees, [address] 331.0 [facility] M.DMariah 294.10 Office Visit 06/26/2012 12:15p [facility] Ana Lees, [address] 331.0 [facility] M.Lola 294.10 Plan of Care Future Appointment(s):06/13/2017 11:30 am - Gali Hua M.D. at [facility].05/30/2017 - Gali Hua M.D.S82.144A Nondisplaced bicondylar fracture of right tibia, initNew Xrays:Lower Leg RightFollow up: Follow up: 2 weeks
--- NOTE | 2017-06-02 14:38 | RAD ---
Indication: Fall, right hip pain. 2 views of the right hip and AP view of the pelvis demonstrates no fracture. No other bone or joint abnormalities identified. Deformity of the left superior and inferior pubic rami from prior fracture is noted. IMPRESSION: DEFORMITY OF THE LEFT SUPERIOR AND INFERIOR PUBIC RAMUS. NO FRACTURE OF THE RIGHT HIP IS NOTED.
--- NOTE | 2017-06-02 14:42 | RAD ---
Indication: Right lower leg pain. 2 views of the right lower leg demonstrates the fracture of the proximal metadiaphysis of the tibia. There is some mild impaction noted. IMPRESSION: Fracture of the proximal metadiaphysis of the tibia with slight impaction.
[2017-06-02] MEDS ORDERED: Acetaminophen TAB* 325 MG PO ONE (15:14)
[2017-06-02 16:12] VITALS: BP 153/64
--- NOTE | 2017-06-02 22:46 | ED ---
Tino Carter Tiffany, scribed for Mary Denise MD on 06/02/17 at 1513 . Lower Extremity - HPI Summary HPI Summary: The patient is an 87 year old F [facility] accompanied by niece s/p being found on floor in her room at long-term at 06:00 today. Per long-term staff, patient either fell out of bed or got out of bed on her own and fell. Has a tibial fracture that occurred on 05/15/17. Has a brace that is set at 30degrees. Saw Dr. Hua (orthopedics) this week as scheduled. Patient rates the pain 2/10 in severity. Symptoms aggravated and alleviated by nothing. Although patient has [facility]OLST stating that pt should have limited evaluations and treatments, long-term staff and her niece wanted her to be evaluated for possible new fracture. - History of Current Complaint Chief Complaint: EDExtremityLower Stated Complaint: FALL Time Seen by Provider: 06/02/17 11:57 Hx Obtained From: Patient, Family/Resident Services Coordinator - Niece Mechanism Of Injury: Unknown - believed fall from bed Onset/Duration: Hours - Found on floor in her room at long-term at 06:00 today Severity Currently: Mild Pain Intensity: 2 Pain Scale Used: 0-10 Numeric Aggravating Factor(s): Nothing Alleviating Factor(s): Nothing - Allergies/Home Medications Allergies/Adverse Reactions: Allergies Allergy/AdvReac Type Severity Reaction Status Date / Time No Known Allergies Allergy Verified 07/20/16 13:34 Home Medications: Home Medications Acetaminophen TAB* [Tylenol TAB*] 650 mg PO BID PRN 06/02/17 [History Confirmed 06/02/17] Dorzolamide 2% OPTH (NF) [Trusopt 2% OPTH (NF)] 1 drop BOTH EYES BID 06/02/17 [ History Confirmed 06/02/17] Skin Protectant * [Critic-Aid Clear Moisture *] 1 applic TOPICAL BID 06/02/17 [ History Confirmed 06/02/17] Timolol 0.5% OPTH.TU* [Timoptic 0.5% Opth*] 1 drop BOTH EYES DAILY 06/02/17 [ History Confirmed 06/02/17] PMH/Surg Hx/FS Hx/Imm Hx Previously Healthy: No Endocrine/Hematology History: Denies: Hx Diabetes, Hx Thyroid Disease Cardiovascular History: Denies: Hx Congestive Heart Failure, Hx Hypertension Respiratory History: Denies: Hx Asthma, Hx Chronic Obstructive Pulmonary Disease (COPD) GI History: Denies: Hx Ulcer History: Denies: Hx Dialysis, Hx Renal Disease Sensory History: Reports: Hx Contacts or Glasses - GLASSES, Hx Glaucoma - BILATERAL Denies: Hx Hearing Aid Opthamlomology History: Reports: Hx Contacts or Glasses - GLASSES, Hx Glaucoma - BILATERAL Neurological History: Reports: Hx Dementia, Other Neuro Impairments/Disorders - VERTIGO BEING TREATED BY DR. 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 BILATERAL CATERACT EXTRACTION WITH IOL IMPLANT, [facility]. APPENDECTOMY A CHILD Hx Anesthesia Reactions: No Infectious Disease History: No Infectious Disease History: Reports: History Other Infectious Disease - MEASLES Denies: Hx Clostridium Difficile, Hx Hepatitis, Hx Human Immunodeficiency Virus (HIV), Hx of Known/Suspected MRSA, Hx Shingles, Hx Tuberculosis, Hx Known/ Suspected VRE, Hx Known/Suspected VRSA, Traveled Outside the [place] in Last 30 Days - Family History Known Family History: Positive: Cardiac Disease - Father at an unspecified age. 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 Hx Substance Use: No Substance Use Type: Reports: None Hx Tobacco Use: Yes Smoking Status (MU): Former Smoker Length of Time of Smoking/Using Tobacco: 50 YEARS Have You Smoked in the Last Year: No Review of Systems Positive: Other - Per long-term staff, patient either fell out of bed or got out of bed on her own and fell Positive: Other - tibial fracture that occurred on 05/15/17 All Other Systems Reviewed And Are Negative: Yes Physical Exam - Summary Physical Exam Summary: Appearance: Ill-appearing, moderate pain distress, Well-nourished Skin: 2-cm ecchymosis on her knee Head: Normal Head/Face inspection Eyes: Conjunctiva clear ENT: Normal inspection Neck: Supple, no nodes, no JVD. Respiratory: Lungs clear, Normal breath sounds, no respiratory distress Cardio: RRR, No murmur, pulses normal, brisk capillary refill Abdomen: soft, nontender Bowel sounds: present Musculoskeletal: pain and palpation of right lower leg at the knee, but no deformity, not wearing brace at time of exam Neuro: Alert, muscle tone normal, facial symmetry, speech normal, sensory/motor intact Psychological: Normal Triage Information Reviewed: Yes Vital Signs On Initial Exam: Initial Vitals BP 117/55 06/02/17 10:46 Vital Signs Reviewed: Yes Diagnostics - Vital Signs Vital Signs Temp Pulse Resp BP Pulse Ox 06/02/17 11:11 69 98 06/02/17 11:08 118/58 06/02/17 10:55 98.1 F 70 16 118/58 96 06/02/17 10:52 69 96 06/02/17 10:48 71 99 06/02/17 10:46 117/55 - Laboratory Lab Statement: Any lab studies that have been ordered have been reviewed, and results considered in the medical decision making process. - Radiology Hip/Pelvis Radiology Interpretation Completed By: Radiologist - DEFORMITY OF THE LEFT SUPERIOR AND INFERIOR PUBIC RAMUS. NO FRACTURE OF THE RIGHT HIP IS NOTED.ED physician has reviewed this radiology report. Lower extremity Radiology Interpretation Completed By: Radiologist - Fracture of the proximal metadiaphysis of the tibia with slight impaction. ED physician has reviewed this radiology report. Lower Extremity Course/Dx - Course Course Of Treatment: Medications reviewed this visit. Lower extremity and hip/ pelvis X-Rays showed no new fracture. Patient will be discharged and advised to continue wearing leg brace. The patient is agreeable with this plan. Discharge - Discharge Plan Condition: Stable Disposition: HOME Patient Education Materials: Leg Fracture (ED) Referrals: Carol Blair MD [Primary Care Provider] - Gali Hua MD [Medical Doctor] - (Follow up with Dr. Hua as scheduled) Additional Instructions: There is no new fracture. Continue to wear your brace as instructed. You were given acetaminophen at 3:15 PM. Follow up with Dr. Hua as scheduled. Return to the Emergency Department if you have any new or worsening symptoms. The documentation as recorded by the Tino ramos Tiffany accurately reflects the service I personally performed and the decisions made by , Mary Denise MD.
== END 2017-06-02 16:11 | disposition home or self-care (01) ==
LOC: ED 10:38
DX: S89.001A Unspecified physeal fracture of upper end of right tibia, initial encounter for closed fracture (principal); W18.30XA Fall on same level, unspecified, initial encounter; Y92.129 Unspecified place in nursing home as the place of occurrence of the external cause; M79.604 Pain in right leg
CPT/HCPCS: 99283